=== PATIENT | male | born 1965 | race Caucasian/White ===

== ENCOUNTER 2017-06-15 09:36 | Inpatient (IN) | payer OTHER ==
[2017-06-15] MEDS ORDERED: PHENERGAN INJ 25 MG IM PRN (10:33)
[2017-06-15] MEDS ORDERED: NS 1000 ML 1,000 ML IV ONE ×2 (10:33)
[2017-06-15 11:15] LABS: BASOPHILS % (AUTO) 0.2 % (0.2-1.0); EOSINOPHILS % (AUTO) 0.1 % (0.9-2.9); HEMATOCRIT 43.3 % (42.0-54.0); HEMOGLOBIN 15.1 g/dL (13.5-18.0); LYMPHOCYTES # (AUTO) 1.7 X10^3/uL (1.3-2.9); MEAN CORPUSCULAR HEMOGLOBIN 29.3 pg (27.0-34.0); MEAN CORPUSCULAR HGB CONC 34.9 g/dL (33.0-35.0); MEAN PLATELET VOLUME 8.2 fL (7.4-11.0); MONOCYTES # (AUTO) 1.3 x10^3/uL (0.3-0.8); MONOCYTES % (AUTO) 7.3 % (0.0-13.0); NEUTROPHILS # (AUTO) 14.1 x10^3/uL (2.2-4.8); NEUTROPHILS % (AUTO) 82.4 % (42.0-75.0); PLATELET COUNT 303 X10^3/uL (150.0-450.0); RED BLOOD COUNT 5.16 X10^6/uL (4.7-6.0); RED CELL DISTRIBUTION WIDTH 13.8 % (11.6-16.5); WHITE BLOOD COUNT 17.2 X10^3/uL (3.6-10.0)
[2017-06-15 11:25] LABS: ALBUMIN 3.1 g/dL (3.4-5.0); CALCIUM 9.6 mg/dL (8.5-10.1); CARBON DIOXIDE 35.3 mmol/L (21-32); COR CA(FOR HYPOALB) 10.3 mg/dL (8.5-10.1); CREATININE 4.09 mg/dL (0.70-1.30); TOTAL PROTEIN 7.9 g/dL (6.4-8.2)
[2017-06-15 11:27] VITALS: BMI 40.6
[2017-06-15] MEDS: PEPCID 20 MG IV PREMIX* 20 MG/50 ML BAG IV SCH ×2 (11:55→21:59)
[2017-06-15] MEDS: PROTONIX INJ 40 MG VIAL IVP SCH ×2 (11:56→21:59)
[2017-06-15] MEDS ORDERED: NS 1000 ML 1,000 ML IV NR (12:30)
[2017-06-15] MEDS: ZOFRAN INJ 4 MG VIAL IVP PRN ×2 (12:50→18:45)
[2017-06-15] MEDS: NS 1000 ML 1,000 ML IV SCH ×2 (14:58→21:53)
[2017-06-15 18:08] LABS: BILIRUBIN,URINE 1+ (NEGATIVE); BLOOD/HEMOGLOBIN,URINE 1+ (NEGATIVE); GLUCOSE, URINE NEGATIVE (NEGATIVE); KETONES,URINE NEGATIVE (NEGATIVE); LEUKOCYTE ESTERASE ,URINE 1+ (NEGATIVE); NITRITES,URINE NEGATIVE (NEGATIVE); PROTEIN,URINE 3+ (NEGATIVE); UROBILINOGEN,URINE NORMAL (NORMAL)
[2017-06-15 18:25] LABS: AMORPHOUS SEDIMENT,UR 1+ /HPF (NEGATIVE); APPEARANCE,URINE SLIGHTLY HAZY (CLEAR); BACTERIA,URINE 1+ /HPF (NEGATIVE); COLOR,URINE STRAW (YELLOW); HYALINE CASTS, URINE FEW /LPF (NEGATIVE); MUCUS,URINE MODERATE /HPF (NEGATIVE); SQUAMOUS EPITHELIAL CELL,UR FEW /HPF (NEGATIVE)
[2017-06-15] MEDS: PHENERGAN INJ 25 MG IV PRN (22:06)
[2017-06-16] MEDS: NS 1000 ML 1,000 ML IV SCH ×3 (01:36→08:51)
[2017-06-16 06:22] LABS: BASOPHILS % (AUTO) 0.2 % (0.2-1.0); EOSINOPHILS # (AUTO) 0.1 x10^3/uL (0.0-0.2); EOSINOPHILS % (AUTO) 0.8 % (0.9-2.9); HEMATOCRIT 36.8 % (42.0-54.0); HEMOGLOBIN 13.2 g/dL (13.5-18.0); LYMPHOCYTES # (AUTO) 1.4 X10^3/uL (1.3-2.9); LYMPHOCYTES % (AUTO) 16.9 % (21.0-51.0); MEAN CORPUSCULAR HGB CONC 35.9 g/dL (33.0-35.0); MEAN CORPUSCULAR VOLUME 83.7 fL (80.0-100.0); MEAN PLATELET VOLUME 8.2 fL (7.4-11.0); MONOCYTES # (AUTO) 1.2 x10^3/uL (0.3-0.8); MONOCYTES % (AUTO) 14.4 % (0.0-13.0); NEUTROPHILS # (AUTO) 5.5 x10^3/uL (2.2-4.8); NEUTROPHILS % (AUTO) 67.7 % (42.0-75.0); PLATELET COUNT 241 X10^3/uL (150.0-450.0); RED CELL DISTRIBUTION WIDTH 13.8 % (11.6-16.5); WHITE BLOOD COUNT 8.2 X10^3/uL (3.6-10.0)
[2017-06-16 06:51] LABS: ALBUMIN 2.6 g/dL (3.4-5.0); CALCIUM 8.6 mg/dL (8.5-10.1); CARBON DIOXIDE 31.3 mmol/L (21-32); COR CA(FOR HYPOALB) 9.7 mg/dL (8.5-10.1); CREATININE 5.17 mg/dL (0.70-1.30); TOTAL PROTEIN 6.9 g/dL (6.4-8.2)
[2017-06-16] MEDS: PROTONIX INJ 40 MG VIAL IVP SCH ×2 (09:42→22:23)
[2017-06-16] MEDS: PHENERGAN INJ 25 MG IV PRN ×2 (09:42→18:58)
[2017-06-16] MEDS: PEPCID 20 MG IV PREMIX* 20 MG/50 ML BAG IV SCH (09:42)
[2017-06-16] MEDS ORDERED: NS 1000 ML 1,000 ML IV ONE ×2 (09:54→09:55)
--- NOTE | 2017-06-16 10:27 | DR.UPDATE ---
H&P Update History and Physical Update: WAS SEEN IN THE OFFICE ON 11/12/2017. HE WAS ADMITTED FOR DEHYDRATION , NAUSEA & VOMITING, S/P ILEOSTOMY 2 WEEKS AGO. A H&P WAS COMPLETED PRIOR TO ADMISSION. PATIENT HAS BEEN SEEN AND EXAMINED WITH NO CHANGES NOTED TO H&P. Changes noted: NO Yes with the following:
[2017-06-16] MEDS: ALBUMIN HUMAN 25%- 100ML 100 ML IV SCH (10:34)
[2017-06-16] MEDS ORDERED: PATIENT'S HOME MEDICATION (Fluticasone/Vilanterol [Breo Ellipta 200-25 Mcg Inh] 1 PUFF) INH SCH (11:30)
[2017-06-16] MEDS: NS 1000 ML 1,000 ML with SODIUM BICARBONATE 8.4% INJ ADULT 50 ML IV SCH ×6 (12:45→23:13)
[2017-06-16] MEDS: SINGULAIR TAB 10 MG PO SCH (12:45)
[2017-06-16] MEDS: DUONEB 0.5 MG/3 MG NEB SCH ×3 (13:49→20:25)
[2017-06-16] MEDS: MORPHINE SULFATE INJ 4 MG IVP PRN (18:22)
[2017-06-16] MEDS: PULMICORT NEB TX 0.5 MG NEB SCH (20:25)
--- NOTE | 2017-06-16 22:08 | CT ---
HISTORY: Severe left upper quadrant pain, vomiting Study: CT abdomen and pelvis without contrast Comparison: 03/23/2015 Technique: Multiple axial images of the abdomen and pelvis were obtained without IV contrast. Dose reduction t echniques including Automated Exposure Control (AEC) and adjustment of mA and kV were utilized. Findings: Please note evaluation is limited without use of IV contrast. There is segmental atelectasis in the right lung base. The liver, spleen, pancreas, kidneys, and adr enal glands are unremarkable in their unenhanced CT appearance. The gallbladder is normal. Enteric tu be terminates in the mid body of the stomach. No free intraperitoneal air. Diffuse dilation of small bowel loops is seen throughout the abdomen salvatore suring up to 4.5 cm with scattered air-fluid levels and areas of bowel wall thickening. Bowel is dila marvel to the level of the mid right abdominal ileostomy. There is a small parastomal hernia at this sit e cannot exclude an obstruction at the level of the ileostomy. The patient is post total colectomy. T here are few mildly prominent presacral lymph nodes for example on axial image 75 measuring 1.2 cm. T here is also a nonspecific 1.5 cm nodular density in the omental fat anterior to the liver on axial i mage 20. The soft tissues and osseous structures are unremarkable. Limited evaluation of vascular structures d ue to lack of contrast. No pathologically enlarged lymph nodes are identified. The urinary bladder is unremarkable. IMPRESSION: 1. Findings concerning for small bowel obstruction with transition point at the ileostomy. Correlatio n with ostomy output is recommended as well as surgical evaluation if clinically warranted. There is a small parastomal hernia noted. 2. Post total colectomy with mildly prominent presacral lymph nodes as described as well as an additi onal nodule in the omentum anterior to the liver. These findings are indeterminate and correlation wi th any previous PET scan would be beneficial if the patient has a history of colonic malignancy. Reported By:
[2017-06-17] MEDS: MORPHINE SULFATE INJ 4 MG IVP PRN ×2 (00:21→20:46)
[2017-06-17] MEDS ORDERED: CHLORASEPTIC SPRAY MT PRN (04:45)
[2017-06-17] MEDS: NS 1000 ML 1,000 ML with SODIUM BICARBONATE 8.4% INJ ADULT 50 ML IV SCH ×2 (05:00)
[2017-06-17 06:16] LABS: BASOPHILS % (AUTO) 0.1 % (0.2-1.0); EOSINOPHILS % (AUTO) 0.2 % (0.9-2.9); HEMATOCRIT 32.4 % (42.0-54.0); HEMOGLOBIN 11.5 g/dL (13.5-18.0); LYMPHOCYTES # (AUTO) 0.7 X10^3/uL (1.3-2.9); LYMPHOCYTES % (AUTO) 12.2 % (21.0-51.0); MEAN CORPUSCULAR HEMOGLOBIN 29.9 pg (27.0-34.0); MEAN CORPUSCULAR HGB CONC 35.5 g/dL (33.0-35.0); MEAN CORPUSCULAR VOLUME 84.2 fL (80.0-100.0); MEAN PLATELET VOLUME 7.8 fL (7.4-11.0); MONOCYTES # (AUTO) 0.7 x10^3/uL (0.3-0.8); MONOCYTES % (AUTO) 12.8 % (0.0-13.0); NEUTROPHILS % (AUTO) 74.7 % (42.0-75.0); PLATELET COUNT 213 X10^3/uL (150.0-450.0); RED BLOOD COUNT 3.85 X10^6/uL (4.7-6.0); RED CELL DISTRIBUTION WIDTH 13.8 % (11.6-16.5); WHITE BLOOD COUNT 5.4 X10^3/uL (3.6-10.0)
[2017-06-17 06:29] LABS: ALBUMIN 2.2 g/dL (3.4-5.0); CARBON DIOXIDE 32.5 mmol/L (21-32); COR CA(FOR HYPOALB) 9.4 mg/dL (8.5-10.1); CREATININE 1.82 mg/dL (0.70-1.30)
--- NOTE | 2017-06-17 07:19 | RAD ---
HISTORY: Small bowel obstruction Study: KUB Comparison: CT abdomen pelvis 06/16/2017 Findings: There is nasogastric tube with its tip within the stomach. There are several dilated loops of small b owel in the mid abdomen . There is an ileostomy in the right lower quadrant. Findings are suggestive of small-bowel obstruction. No abnormal masses or abnormal calcifications are identified. IMPRESSION: Findings suggestive of small-bowel obstruction Reported By:
[2017-06-17] MEDS: ALBUMIN HUMAN 25%- 100ML 100 ML IV SCH (09:01)
[2017-06-17] MEDS: PROTONIX INJ 40 MG VIAL IVP SCH ×2 (09:04→20:46)
[2017-06-17] MEDS: DUONEB 0.5 MG/3 MG NEB SCH ×4 (09:12→21:11)
[2017-06-17] MEDS: PULMICORT NEB TX 0.5 MG NEB SCH ×2 (09:12→21:11)
[2017-06-17] MEDS: PEPCID 20 MG IV PREMIX* 20 MG/50 ML BAG IV SCH (09:14)
[2017-06-17] MEDS: D5 1/2 NS 1000 ML 1,000 ML IV SCH ×2 (11:36→18:15)
[2017-06-17] MEDS: LEVAQUIN PREMIX IV 500 MG 500 MG/100 ML BAG IV SCH (11:37)
[2017-06-17] MEDS: SINGULAIR TAB 10 MG PO SCH (11:37)
[2017-06-17] MEDS: LOVENOX INJ 40 MG SYR SC SCH (11:37)
--- NOTE | 2017-06-17 16:25 | DR.PROGNOT ---
Hospital Progress Notes - Progress Note for Day of: Progress Note Date: 06/17/17 - Chief Complaint Chief Complaint: abdominal pain . distention , vomiting over the past few days . had recent subtotal colectom with ileostomy for severe Ulcerative colitis . NGT is draining fecaloid material .. feeling better this am with less pain . ileostomy is functioning but only small amount - History of Present Illness History of Present Illness: no changes in history. - Past Medical Family Social History Past Med/Fam/Surg Hx: No changes since H&P Allergies: Allergies No Known Drug Allergies Allergy (Verified 06/15/17 10:33) - Review Of Systems ROS: No change since H&P (HTN , GERD ,recurrent ulcerative colitis required resction .) - Vital Signs Vital Signs: Temperature 98.9 F Pulse Rate [Right Brachial] 98 Pulse Rate 76 Respiratory Rate 20 Blood Pressure [Left Arm] 100/53 Blood Pressure [Right Arm] 131/70 Blood Pressure 137/71 O2 Sat by Pulse Oximetry 94 - Physical Exam Oriented: Normal Eyes: Normal Ear: Normal Nose: Normal Throat: Normal Respiratory: Normal GI: Tenderness: Diffuse, Moderate (full abdomen . BS hypoactive , small amount of stool in the ileostomy bag . no wound infection ) Psychiatric: Normal - Laboratory and Diagnostics Result Diagrams: 06/17/17 05:25 06/17/17 05:25 Labs: Laboratory WBC 5.4 X10^3/uL (3.6-10.0) 06/17/17 05:25 RBC 3.85 X10^6/uL (4.7-6.0) L 06/17/17 05:25 Hgb 11.5 g/dL (13.5-18.0) L 06/17/17 05:25 Hct 32.4 % (42.0-54.0) L 06/17/17 05:25 MCV 84.2 fL (80.0-100.0) 06/17/17 05:25 MCH 29.9 pg (27.0-34.0) 06/17/17 05:25 MCHC 35.5 g/dL (33.0-35.0) H 06/17/17 05:25 RDW 13.8 % (11.6-16.5) 06/17/17 05:25 Plt Count 213 X10^3/uL (150.0-450.0) 06/17/17 05:25 MPV 7.8 fL (7.4-11.0) 06/17/17 05:25 Neut % 74.7 % (42.0-75.0) 06/17/17 05:25 Lymph % 12.2 % (21.0-51.0) L 06/17/17 05:25 [place] % 12.8 % (0.0-13.0) 06/17/17 05:25 Eos % 0.2 % (0.9-2.9) L 06/17/17 05:25 Baso % 0.1 % (0.2-1.0) L 06/17/17 05:25 Neut # 4.0 x10^3/uL (2.2-4.8) 06/17/17 05:25 Lymph # 0.7 X10^3/uL (1.3-2.9) L 06/17/17 05:25 [place] # 0.7 x10^3/uL (0.3-0.8) 06/17/17 05:25 Eos # 0.0 x10^3/uL (0.0-0.2) 06/17/17 05:25 Baso # 0.0 X10^3/uL (0.0-0.1) 06/17/17 05:25 Absolute Nucleated RBC 0.1 /100WBC 06/17/17 05:25 Sodium 136 mmol/L (136-145) 06/17/17 05:25 Corrected Sodium 136 mmol/L (136-145) 06/17/17 05:25 Potassium 3.6 mmol/L (3.5-5.1) 06/17/17 05:25 Chloride 97 mmol/L (98-107) L 06/17/17 05:25 Carbon Dioxide 32.5 mmol/L (21-32) H 06/17/17 05:25 BUN 38 mg/dL (7-18) H 06/17/17 05:25 Creatinine 1.82 mg/dL (0.70-1.30) H 06/17/17 05:25 Est GFR (MDRD) Af Amer 50 (>60) L 06/17/17 05:25 Est GFR (MDRD) Non-Af 42 (>60) L 06/17/17 05:25 Glucose 119 mg/dL (65-99) H 06/17/17 05:25 Calcium 8.0 mg/dL (8.5-10.1) L 06/17/17 05:25 Corrected Calcium 9.4 mg/dL (8.5-10.1) 06/17/17 05:25 Total Bilirubin 1.40 mg/dL (0.2-1.0) H 06/17/17 05:25 AST 12 Units/L (15-37) L 06/17/17 05:25 ALT 18 Units/L (12-78) 06/17/17 05:25 Alkaline Phosphatase 41 Units/L (46-116) L 06/17/17 05:25 Total Protein 6.0 g/dL (6.4-8.2) L 06/17/17 05:25 Albumin 2.2 g/dL (3.4-5.0) L 06/17/17 05:25 Globulin 3.8 g/dL (2.5-4.5) 06/17/17 05:25 Albumin/Globulin Ratio 0.6 Ratio (1.1-2.1) L 06/17/17 05:25 Specimen Type Clean catch urine 06/15/17 17:55 Urine Color Straw (YELLOW) 06/15/17 17:55 Urine Appearance Slightly hazy (CLEAR) 06/15/17 17:55 Urine pH 5.0 (5.0 - 8.0) 06/15/17 17:55 Ur Specific [place] 1.025 (1.000-1.030) 06/15/17 17:55 Urine Protein 3+ (NEGATIVE) 06/15/17 17:55 Urine Glucose (UA) Negative (NEGATIVE) 06/15/17 17:55 Urine Ketones Negative (NEGATIVE) 06/15/17 17:55 Urine Occult Blood 1+ (NEGATIVE) 06/15/17 17:55 Urine Nitrite Negative (NEGATIVE) 06/15/17 17:55 Urine Bilirubin 1+ (NEGATIVE) 06/15/17 17:55 Urine Urobilinogen Normal (NORMAL) 06/15/17 17:55 Ur Leukocyte Esterase 1+ (NEGATIVE) 06/15/17 17:55 Urine RBC 2-3 /HPF (NONE SEEN) 06/15/17 17:55 Urine WBC 0-2 /HPF (NONE SEEN) 06/15/17 17:55 Ur Squamous Epith Cells Few /HPF (NEGATIVE) 06/15/17 17:55 Amorphous Sediment 1+ /HPF (NEGATIVE) 06/15/17 17:55 Urine Bacteria 1+ /HPF (NEGATIVE) 06/15/17 17:55 Hyaline Casts Few /LPF (NEGATIVE) 06/15/17 17:55 Urine Mucus Moderate /HPF (NEGATIVE) 06/15/17 17:55 Ur Culture Indicated? No/not indicated 06/15/17 17:55 - Assessment and Plan 1: post operative partial SBO ,most propably ileus type . S/P subtotal colectomy for UC. severe vomiting and dehydration . obesity . red keep keep NGT.IVF and hydration , DVT prophylaxis , IV ATB and protonix ,nutritional support and repeat abdominal xrays
[2017-06-17] MEDS: PHENERGAN INJ 25 MG IV PRN (20:47)
[2017-06-18] MEDS: D5 1/2 NS 1000 ML 1,000 ML IV SCH ×3 (01:11→17:49)
[2017-06-18 06:09] LABS: BASOPHILS % (AUTO) 0.4 % (0.2-1.0); EOSINOPHILS # (AUTO) 0.1 x10^3/uL (0.0-0.2); EOSINOPHILS % (AUTO) 1.6 % (0.9-2.9); HEMATOCRIT 31.5 % (42.0-54.0); HEMOGLOBIN 11.1 g/dL (13.5-18.0); LYMPHOCYTES # (AUTO) 1.1 X10^3/uL (1.3-2.9); LYMPHOCYTES % (AUTO) 14.3 % (21.0-51.0); MEAN CORPUSCULAR HEMOGLOBIN 29.9 pg (27.0-34.0); MEAN CORPUSCULAR HGB CONC 35.2 g/dL (33.0-35.0); MEAN CORPUSCULAR VOLUME 84.9 fL (80.0-100.0); MEAN PLATELET VOLUME 8.1 fL (7.4-11.0); MONOCYTES # (AUTO) 0.9 x10^3/uL (0.3-0.8); MONOCYTES % (AUTO) 10.9 % (0.0-13.0); NEUTROPHILS # (AUTO) 5.7 x10^3/uL (2.2-4.8); NEUTROPHILS % (AUTO) 72.8 % (42.0-75.0); PLATELET COUNT 240 X10^3/uL (150.0-450.0); RED BLOOD COUNT 3.71 X10^6/uL (4.7-6.0); RED CELL DISTRIBUTION WIDTH 13.6 % (11.6-16.5); WHITE BLOOD COUNT 7.9 X10^3/uL (3.6-10.0)
[2017-06-18 06:40] LABS: ALANINE AMINOTRANSFERASE 17 Units/L (12-78); ALBUMIN 2.4 g/dL (3.4-5.0); ALKALINE PHOSPHATASE 50 Units/L (46-116); ASPARTATE AMINO TRANSFERASE 15 Units/L (15-37); BLOOD UREA NITROGEN 21 mg/dL (7-18); CALCIUM 8.3 mg/dL (8.5-10.1); CARBON DIOXIDE 30.2 mmol/L (21-32); CHLORIDE 97 mmol/L (98-107); COR CA(FOR HYPOALB) 9.6 mg/dL (8.5-10.1); COR NA(FOR HYPERGLY) 137 mmol/L (136-145); CREATININE 0.99 mg/dL (0.70-1.30); SODIUM 136 mmol/L (136-145); TOTAL PROTEIN 6.5 g/dL (6.4-8.2); eGFR BLACK RACES > 60 (>60); eGFR NON BLACK RACES > 60 (>60)
--- NOTE | 2017-06-18 07:28 | RAD ---
HISTORY: Small bowel obstruction Study: Flat and upright abdomen, PA chest Comparison: 06/17/2017, CT abdomen pelvis 06/16/2017 Findings: Once again noted are multiple dilated loops of small bowel in the mid abdomen very little gas is seen in the distal small bowel. The findings are consistent with ongoing small bowel obstruction. There i s nasogastric tube within the stomach. No pneumoperitoneum is identified. Examination of the chest de monstrated the heart to be within normal limits in size. There is abnormal density projected over the right hilum this may represent infiltrate and atelectasis. Chest CT with contrast is recommended for further evaluation. The left lung is clear. IMPRESSION: Findings consistent with small bowel obstruction Abnormal right-sided perihilar density possibly infiltrate and atelectasis in the right lower lobe ho wever chest CT with contrast is recommended for further evaluation. Reported By:
[2017-06-18] MEDS ORDERED: POTASSIUM CHL 60 MEQ/NS 0.45% 500 ML IV PRN (08:06)
[2017-06-18] MEDS ORDERED: MAGNESIUM SULFATE 1 GM/100 mL PREMIX 1 GM/100 ML BAG IV PRN (08:06)
[2017-06-18] MEDS ORDERED: POTASSIUM CHL 40 MEQ/NS 0.45% 500 ML IV PRN (08:06)
[2017-06-18] MEDS ORDERED: K-LYTE EFFERVESCENT PO PRN (08:06)
[2017-06-18] MEDS ORDERED: POTASSIUM CHLORIDE LIQ 20 MEQ UDC PO PRN (08:06)
[2017-06-18] MEDS ORDERED: MAG-OX TAB PO PRN (08:06)
[2017-06-18] MEDS: LEVAQUIN PREMIX IV 500 MG 500 MG/100 ML BAG IV SCH (08:31)
[2017-06-18] MEDS: ALBUMIN HUMAN 25%- 100ML 100 ML IV SCH (08:31)
[2017-06-18] MEDS: PEPCID 20 MG IV PREMIX* 20 MG/50 ML BAG IV SCH (08:33)
[2017-06-18] MEDS: PROTONIX INJ 40 MG VIAL IVP SCH (08:34)
[2017-06-18] MEDS: LOVENOX INJ 40 MG SYR SC SCH (08:34)
[2017-06-18] MEDS: DUONEB 0.5 MG/3 MG NEB SCH ×4 (09:07→21:32)
[2017-06-18] MEDS: PULMICORT NEB TX 0.5 MG NEB SCH ×2 (09:08→21:32)
[2017-06-18] MEDS: SINGULAIR TAB 10 MG PO SCH (11:16)
--- NOTE | 2017-06-18 11:21 | CT ---
CT chest with contrast Indication: Abnormal chest radiograph, possible pneumonia Technique: Helical CT images of the chest were obtained with IV contrast. Reformatted images in the c oronal and sagittal planes were also generated for review. Comparison: Acute abdominal series from same day Findings: The heart is normal in size without pericardial effusion. Mild coronary atherosclerotic dis ease is noted. The thoracic aorta is normal in contour and caliber. The central airways are patent. S hotty lower mediastinal and right hilar lymph nodes are present, none pathologically enlarged. There is no left hilar lymphadenopathy. Dense airspace infiltrates are present within the right upper and lower lobes with associated air bro nchograms. Apart from subsegmental atelectasis of the left lower lobe, the left lung is clear. No sig nificant pleural effusion or pneumothorax is identified. Limited images of the upper abdomen demonstrate dilated loops of small bowel within the left upper qu adrant, compatible with known small bowel obstruction. An NG tube terminates within the gastric antru m. No aggressive osseous lesions are identified. Impression: Dense airspace disease within the right upper and lower lobes, most compatible with multifocal pneumo qi. Recommend radiographic follow-up to complete resolution to exclude underlying mass. Persistent small bowel obstruction. Reported By:
--- NOTE | 2017-06-18 12:03 | DR.PROGNOT ---
Hospital Progress Notes - Progress Note for Day of: Progress Note Date: 06/18/17 - Chief Complaint Chief Complaint: less abdominal pain , no nausea and NGT drainage is less.. ileostomy in functioning this mornong ,though the xray is still showing dilated small bowel loops .. - History of Present Illness History of Present Illness: no changes in history. - Past Medical Family Social History Past Med/Fam/Surg Hx: No changes since H&P Allergies: Allergies No Known Drug Allergies Allergy (Verified 06/15/17 10:33) - Review Of Systems ROS: No change since H&P (HTN , GERD ,recurrent ulcerative colitis required resction .) - Vital Signs Vital Signs: Temperature 97.5 F Pulse Rate [Right Brachial] 86 Pulse Rate 78 Respiratory Rate 20 Blood Pressure [Left Arm] 144/77 Blood Pressure [Right Arm] 136/79 Blood Pressure 137/71 O2 Sat by Pulse Oximetry 95 - Physical Exam Oriented: Normal Eyes: Normal Ear: Normal Nose: Normal Throat: Normal Respiratory: Normal GI: Tenderness: Diffuse, Moderate (full abdomen . BS + , moderate amount of stool in the ileostomy bag . no wound infection ) Psychiatric: Normal Speech Pattern: Clear, Appropriate - Laboratory and Diagnostics Result Diagrams: 06/18/17 05:00 06/18/17 05:00 Labs: Laboratory WBC 7.9 X10^3/uL (3.6-10.0) 06/18/17 05:00 RBC 3.71 X10^6/uL (4.7-6.0) L 06/18/17 05:00 Hgb 11.1 g/dL (13.5-18.0) L 06/18/17 05:00 Hct 31.5 % (42.0-54.0) L 06/18/17 05:00 MCV 84.9 fL (80.0-100.0) 06/18/17 05:00 MCH 29.9 pg (27.0-34.0) 06/18/17 05:00 MCHC 35.2 g/dL (33.0-35.0) H 06/18/17 05:00 RDW 13.6 % (11.6-16.5) 06/18/17 05:00 Plt Count 240 X10^3/uL (150.0-450.0) 06/18/17 05:00 MPV 8.1 fL (7.4-11.0) 06/18/17 05:00 Neut % 72.8 % (42.0-75.0) 06/18/17 05:00 Lymph % 14.3 % (21.0-51.0) L 06/18/17 05:00 [place] % 10.9 % (0.0-13.0) 06/18/17 05:00 Eos % 1.6 % (0.9-2.9) 06/18/17 05:00 Baso % 0.4 % (0.2-1.0) 06/18/17 05:00 Neut # 5.7 x10^3/uL (2.2-4.8) H 06/18/17 05:00 Lymph # 1.1 X10^3/uL (1.3-2.9) L 06/18/17 05:00 [place] # 0.9 x10^3/uL (0.3-0.8) H 06/18/17 05:00 Eos # 0.1 x10^3/uL (0.0-0.2) 06/18/17 05:00 Baso # 0.0 X10^3/uL (0.0-0.1) 06/18/17 05:00 Absolute Nucleated RBC 0.0 /100WBC 06/18/17 05:00 Sodium 136 mmol/L (136-145) 06/18/17 05:00 Corrected Sodium 137 mmol/L (136-145) 06/18/17 05:00 Potassium 3.1 mmol/L (3.5-5.1) L 06/18/17 05:00 Chloride 97 mmol/L (98-107) L 06/18/17 05:00 Carbon Dioxide 30.2 mmol/L (21-32) 06/18/17 05:00 BUN 21 mg/dL (7-18) H 06/18/17 05:00 Creatinine 0.99 mg/dL (0.70-1.30) 06/18/17 05:00 Est GFR (MDRD) Af Amer > 60 (>60) 06/18/17 05:00 Est GFR (MDRD) Non-Af > 60 (>60) 06/18/17 05:00 Glucose 133 mg/dL (65-99) H 06/18/17 05:00 Calcium 8.3 mg/dL (8.5-10.1) L 06/18/17 05:00 Corrected Calcium 9.6 mg/dL (8.5-10.1) 06/18/17 05:00 Magnesium 1.9 mg/dL (1.7-2.9) 06/18/17 05:00 Total Bilirubin 1.60 mg/dL (0.2-1.0) H 06/18/17 05:00 AST 15 Units/L (15-37) 06/18/17 05:00 ALT 17 Units/L (12-78) 06/18/17 05:00 Alkaline Phosphatase 50 Units/L (46-116) 06/18/17 05:00 Total Protein 6.5 g/dL (6.4-8.2) 06/18/17 05:00 Albumin 2.4 g/dL (3.4-5.0) L 06/18/17 05:00 Globulin 4.1 g/dL (2.5-4.5) 06/18/17 05:00 Albumin/Globulin Ratio 0.6 Ratio (1.1-2.1) L 06/18/17 05:00 Specimen Type Clean catch urine 06/15/17 17:55 Urine Color Straw (YELLOW) 06/15/17 17:55 Urine Appearance Slightly hazy (CLEAR) 06/15/17 17:55 Urine pH 5.0 (5.0 - 8.0) 06/15/17 17:55 Ur Specific [place] 1.025 (1.000-1.030) 06/15/17 17:55 Urine Protein 3+ (NEGATIVE) 06/15/17 17:55 Urine Glucose (UA) Negative (NEGATIVE) 06/15/17 17:55 Urine Ketones Negative (NEGATIVE) 06/15/17 17:55 Urine Occult Blood 1+ (NEGATIVE) 06/15/17 17:55 Urine Nitrite Negative (NEGATIVE) 06/15/17 17:55 Urine Bilirubin 1+ (NEGATIVE) 06/15/17 17:55 Urine Urobilinogen Normal (NORMAL) 06/15/17 17:55 Ur Leukocyte Esterase 1+ (NEGATIVE) 06/15/17 17:55 Urine RBC 2-3 /HPF (NONE SEEN) 06/15/17 17:55 Urine WBC 0-2 /HPF (NONE SEEN) 06/15/17 17:55 Ur Squamous Epith Cells Few /HPF (NEGATIVE) 06/15/17 17:55 Amorphous Sediment 1+ /HPF (NEGATIVE) 06/15/17 17:55 Urine Bacteria 1+ /HPF (NEGATIVE) 06/15/17 17:55 Hyaline Casts Few /LPF (NEGATIVE) 06/15/17 17:55 Urine Mucus Moderate /HPF (NEGATIVE) 06/15/17 17:55 Ur Culture Indicated? No/not indicated 06/15/17 17:55 Radiology Reviewed: Yes - Assessment and Plan 1: post operative partial SBO ,most propably ileus type . S/P subtotal colectomy for UC. severe vomiting and dehydration . obesity . red keep keep NGT.IVF and hydration , DVT prophylaxis , IV ATB and protonix ,nutritional support and repeat abdominal xrays
--- NOTE | 2017-06-18 14:10 | PCM.PROG ---
Progress Note - Progress Note for Day of Date: 06/16/17 - Subjective Subjective: WAS ADMITTED FOR DEHYDRATION AND NAUSEA/VOMITING, S/P ILEOSTOMY ON 06/13/2017. PATIENT REPORTS THAT HE UNDERWENT A COLECTOMY WITH ILEOSTOMY FOR SEVERE ULCERATIVE COLITIS. TODAY, HE IS ALERT AND ORIENTED, LYING IN BED ON MORNING ROUNDS. PATIENTS SPOUSE IS AT BEDSIDE. HE CONTINUES WITH COMPLAINTS OF NAUSEA, VOMITING, AND DIFFUSE ABDOMINAL PAIN. ON EXAMINATION, HEART IS REGULAR IN RATE AND RHYTHM. BILATERAL LUNGS ARE NOTED WITH DIMINISHED LUNG SOUNDS THROUGHOUT. ABDOMEN IS ROUND, SOFT, AND NOTED WITH MODERATE, DIFFUSE TENDERNESS ON PALPATION. STOMA IS NOTED TO THE RIGHT LOWER ABDOMEN. STOMA IS RED AND WITH NO SIGNS OR SX INFECTION NOTED. NORMAL BOWEL SOUNDS ARE NOTED IN ALL QUADRANTS. THERE IS NORMAL RANGE OF MOTION NOTED TO ALL EXTREMITIES. HIS VITALS THIS MORNING ARE 98.4-90-20-92%-95/54. LABS WERE OBTAINED. ABNORMAL LAB VALUES INCLUDE THE FOLLOWING: RBC 4.40, HGB 13.2, HCT 36.8, SODIUM 130, CHLORIDE 89, BUN 49, CREATININE 5.17, GFR 12, GLUCOSE 118, AST 11, ALK PHOS 45, ALBUMIN 2.6. TODAY, WE PLAN TO BOLUS PATIENT TWO LITERS OF NORMAL SALINE. WE WILL THEN INCREASE MAINTENANCE FLUIDS TO 200ML/HR WITH ONE AMP OF BICARB ADDED TO EACH LITER OF IV FLUIDS. WE WILL ALSO START ALBUMIN 25% IV DAILY FOR DECREASED ALBUMIN LEVELS. OTHERWISE, WE WILL CONTINUE WITH CURRENT PLAN OF CARE. WE PLAN TO FOLLOW UP WITH AM LABS AND CONTINUE TO MONITOR PATIENT. - Past Medical Family Social History Past Med/Fam/Surg Hx: No changes since H&P Allergies: Allergies No Known Drug Allergies Allergy (Verified 06/15/17 10:33) - Review of Systems ROS: No change since H&P (HTN , GERD ,recurrent ulcerative colitis required resction .) - Vital Signs and I&O's Vital Signs: Temperature 98.2 F Pulse Rate [Right Brachial] 92 Pulse Rate 71 Respiratory Rate 20 Blood Pressure [Left Arm] 144/77 Blood Pressure [Right Arm] 130/76 Blood Pressure 137/71 O2 Sat by Pulse Oximetry 95 Intake and Output: Intake & Output 06/16/17 06/17/17 06/18/17 06/19/17 11:59 11:59 11:59 11:59 Intake Total 4750 5920 1200 Output Total 1600 800 Balance 4750 4320 400 - Physical Exam Oriented: Normal Eyes: Normal Ear: Normal Nose: Normal Throat: Normal Respiratory: Generalized, Diminished Cardiovascular: Normal. negative: S3, S4, Murmur, Edema : Normal Auscultation: Bowel Sounds: Normal Palpation: Normal Tenderness: Diffuse, Moderate (full abdomen . BS + , moderate amount of stool in the ileostomy bag . no wound infection ) Skin: Normal Musculoskeletal: Normal Psychiatric: Normal Speech Pattern: Clear, Appropriate - Laboratory and Diagnostics Result Diagrams: 06/18/17 05:00 06/18/17 05:00 Labs: Laboratory WBC 7.9 X10^3/uL (3.6-10.0) 06/18/17 05:00 RBC 3.71 X10^6/uL (4.7-6.0) L 06/18/17 05:00 Hgb 11.1 g/dL (13.5-18.0) L 06/18/17 05:00 Hct 31.5 % (42.0-54.0) L 06/18/17 05:00 MCV 84.9 fL (80.0-100.0) 06/18/17 05:00 MCH 29.9 pg (27.0-34.0) 06/18/17 05:00 MCHC 35.2 g/dL (33.0-35.0) H 06/18/17 05:00 RDW 13.6 % (11.6-16.5) 06/18/17 05:00 Plt Count 240 X10^3/uL (150.0-450.0) 06/18/17 05:00 MPV 8.1 fL (7.4-11.0) 06/18/17 05:00 Neut % 72.8 % (42.0-75.0) 06/18/17 05:00 Lymph % 14.3 % (21.0-51.0) L 06/18/17 05:00 [place] % 10.9 % (0.0-13.0) 06/18/17 05:00 Eos % 1.6 % (0.9-2.9) 06/18/17 05:00 Baso % 0.4 % (0.2-1.0) 06/18/17 05:00 Neut # 5.7 x10^3/uL (2.2-4.8) H 06/18/17 05:00 Lymph # 1.1 X10^3/uL (1.3-2.9) L 06/18/17 05:00 [place] # 0.9 x10^3/uL (0.3-0.8) H 06/18/17 05:00 Eos # 0.1 x10^3/uL (0.0-0.2) 06/18/17 05:00 Baso # 0.0 X10^3/uL (0.0-0.1) 06/18/17 05:00 Absolute Nucleated RBC 0.0 /100WBC 06/18/17 05:00 Sodium 136 mmol/L (136-145) 06/18/17 05:00 Corrected Sodium 137 mmol/L (136-145) 06/18/17 05:00 Potassium 3.1 mmol/L (3.5-5.1) L 06/18/17 05:00 Chloride 97 mmol/L (98-107) L 06/18/17 05:00 Carbon Dioxide 30.2 mmol/L (21-32) 06/18/17 05:00 BUN 21 mg/dL (7-18) H 06/18/17 05:00 Creatinine 0.99 mg/dL (0.70-1.30) 06/18/17 05:00 Est GFR (MDRD) Af Amer > 60 (>60) 06/18/17 05:00 Est GFR (MDRD) Non-Af > 60 (>60) 06/18/17 05:00 Glucose 133 mg/dL (65-99) H 06/18/17 05:00 Calcium 8.3 mg/dL (8.5-10.1) L 06/18/17 05:00 Corrected Calcium 9.6 mg/dL (8.5-10.1) 06/18/17 05:00 Magnesium 1.9 mg/dL (1.7-2.9) 06/18/17 05:00 Total Bilirubin 1.60 mg/dL (0.2-1.0) H 06/18/17 05:00 AST 15 Units/L (15-37) 06/18/17 05:00 ALT 17 Units/L (12-78) 06/18/17 05:00 Alkaline Phosphatase 50 Units/L (46-116) 06/18/17 05:00 Total Protein 6.5 g/dL (6.4-8.2) 06/18/17 05:00 Albumin 2.4 g/dL (3.4-5.0) L 06/18/17 05:00 Globulin 4.1 g/dL (2.5-4.5) 06/18/17 05:00 Albumin/Globulin Ratio 0.6 Ratio (1.1-2.1) L 06/18/17 05:00 Specimen Type Clean catch urine 06/15/17 17:55 Urine Color Straw (YELLOW) 06/15/17 17:55 Urine Appearance Slightly hazy (CLEAR) 06/15/17 17:55 Urine pH 5.0 (5.0 - 8.0) 06/15/17 17:55 Ur Specific [place] 1.025 (1.000-1.030) 06/15/17 17:55 Urine Protein 3+ (NEGATIVE) 06/15/17 17:55 Urine Glucose (UA) Negative (NEGATIVE) 06/15/17 17:55 Urine Ketones Negative (NEGATIVE) 06/15/17 17:55 Urine Occult Blood 1+ (NEGATIVE) 06/15/17 17:55 Urine Nitrite Negative (NEGATIVE) 06/15/17 17:55 Urine Bilirubin 1+ (NEGATIVE) 06/15/17 17:55 Urine Urobilinogen Normal (NORMAL) 06/15/17 17:55 Ur Leukocyte Esterase 1+ (NEGATIVE) 06/15/17 17:55 Urine RBC 2-3 /HPF (NONE SEEN) 06/15/17 17:55 Urine WBC 0-2 /HPF (NONE SEEN) 06/15/17 17:55 Ur Squamous Epith Cells Few /HPF (NEGATIVE) 06/15/17 17:55 Amorphous Sediment 1+ /HPF (NEGATIVE) 06/15/17 17:55 Urine Bacteria 1+ /HPF (NEGATIVE) 06/15/17 17:55 Hyaline Casts Few /LPF (NEGATIVE) 06/15/17 17:55 Urine Mucus Moderate /HPF (NEGATIVE) 06/15/17 17:55 Ur Culture Indicated? No/not indicated 06/15/17 17:55 - Plan (1) Dehydration Status: Acute Plan: BOLUS 2 LITERS NORMAL SALINE, THEN NORMAL SALINE AT 200ML/HR WITH 1 AMP BICARB IN EACH LITER IVF, CONTINUE TO MONITOR (2) Nausea & vomiting Status: Acute Qualifiers: Vomiting type: unspecified Vomiting Intractability: intractable Qualified Code(s): R11.2 - Nausea with vomiting, unspecified Plan: CONTINUE PHENERGAN, CONTINUE ZOFRAN, CONTINUE TO MONITOR (3) Abdominal pain Status: Acute Qualifiers: Abdominal location: generalized Qualified Code(s): R10.84 - Generalized abdominal pain Plan: CONTINUE MORPHINE, CONTINUE TO MONITOR (4) Status post ileostomy Status: Acute Plan: CONTINUE TO MONITOR
--- NOTE | 2017-06-18 16:54 | RAD ---
HISTORY: Small bowel obstruction Study: Flat and upright views of the abdomen. Comparison: 06/18/2017 Findings: Evaluation of the abdomen demonstrates a redemonstration of dilated loops of small bowel with air-flu id levels the upper abdomen. No distal bowel gas. No free air. No pathological soft tissue mass or c alcification can be observed. The bony structures are grossly intact. IMPRESSION: 1. No change in dilated loops of small bowel with air-fluid levels consistent with small bowel obstr uction. Reported By:
[2017-06-18] MEDS: PHENERGAN INJ 25 MG IV PRN (17:49)
[2017-06-19] MEDS: MORPHINE SULFATE INJ 4 MG IVP PRN
[2017-06-19] MEDS: PHENERGAN INJ 25 MG IV PRN (00:01)
[2017-06-19] MEDS: PROTONIX INJ 40 MG VIAL IVP SCH ×3 (00:01→21:05)
[2017-06-19] MEDS: D5 1/2 NS 1000 ML 1,000 ML IV SCH ×4 (00:12→17:09)
[2017-06-19 06:17] LABS: BASOPHILS % (AUTO) 0.4 % (0.2-1.0); EOSINOPHILS # (AUTO) 0.2 x10^3/uL (0.0-0.2); EOSINOPHILS % (AUTO) 2.7 % (0.9-2.9); HEMATOCRIT 31.5 % (42.0-54.0); LYMPHOCYTES # (AUTO) 1.4 X10^3/uL (1.3-2.9); MEAN CORPUSCULAR HEMOGLOBIN 29.5 pg (27.0-34.0); MEAN CORPUSCULAR VOLUME 84.4 fL (80.0-100.0); MEAN PLATELET VOLUME 7.9 fL (7.4-11.0); MONOCYTES % (AUTO) 13.7 % (0.0-13.0); NEUTROPHILS # (AUTO) 4.7 x10^3/uL (2.2-4.8); NEUTROPHILS % (AUTO) 64.2 % (42.0-75.0); PLATELET COUNT 264 X10^3/uL (150.0-450.0); RED BLOOD COUNT 3.73 X10^6/uL (4.7-6.0); RED CELL DISTRIBUTION WIDTH 13.5 % (11.6-16.5); WHITE BLOOD COUNT 7.3 X10^3/uL (3.6-10.0)
--- NOTE | 2017-06-19 07:53 | RAD ---
HISTORY: Follow-up pneumonia Study: Chest AP portable Comparison: CT chest 06/18/2017 Findings: The heart is within normal limits in size. No congestive heart failure is noted. Infiltrate is presen t in the right upper lobe and superior segment of the right lower lobe most consistent with pneumonia . Follow-up until complete resolution is recommended in order to exclude underlying malignancy. The r emainder of the lung henderson are clear. No pleural effusions are identified. The bony thorax is unrema rkable. IMPRESSION: Pneumonia involving the right upper lobe and superior segment of the right lower lobe. Follow-up unti l complete resolution is recommended. Reported By:
[2017-06-19 07:58] LABS: ALANINE AMINOTRANSFERASE 24 Units/L (12-78); ALBUMIN 2.6 g/dL (3.4-5.0); ALKALINE PHOSPHATASE 52 Units/L (46-116); ASPARTATE AMINO TRANSFERASE 22 Units/L (15-37); BLOOD UREA NITROGEN 16 mg/dL (7-18); CALCIUM 8.3 mg/dL (8.5-10.1); CARBON DIOXIDE 27.9 mmol/L (21-32); CHLORIDE 98 mmol/L (98-107); COR CA(FOR HYPOALB) 9.4 mg/dL (8.5-10.1); COR NA(FOR HYPERGLY) 135 mmol/L (136-145); CREATININE 0.79 mg/dL (0.70-1.30); SODIUM 135 mmol/L (136-145); TOTAL PROTEIN 6.6 g/dL (6.4-8.2); eGFR BLACK RACES > 60 (>60); eGFR NON BLACK RACES > 60 (>60)
--- NOTE | 2017-06-19 08:14 | RAD ---
HISTORY: Small bowel obstruction Study: KUB Comparison: 06/18/2017 Findings: There is an ostomy in the right lower quadrant. Once again noted are multiple dilated loops of small bowel in the upper abdomen not significantly changed from prior examinations and still consistent wit h small-bowel obstruction. There is nasogastric tube present. IMPRESSION: No significant change from the prior examination Reported By:
[2017-06-19] MEDS: ALBUMIN HUMAN 25%- 100ML 100 ML IV SCH (09:04)
[2017-06-19] MEDS: LOVENOX INJ 40 MG SYR SC SCH (09:04)
[2017-06-19] MEDS: PEPCID 20 MG IV PREMIX* 20 MG/50 ML BAG IV SCH (09:04)
[2017-06-19] MEDS: DUONEB 0.5 MG/3 MG NEB SCH ×4 (09:36→21:01)
[2017-06-19] MEDS: PULMICORT NEB TX 0.5 MG NEB SCH ×2 (09:36→21:01)
[2017-06-19] MEDS: SINGULAIR TAB 10 MG PO SCH (09:45)
[2017-06-19] MEDS: LEVAQUIN PREMIX IV 500 MG 500 MG/100 ML BAG IV SCH (10:45)
--- NOTE | 2017-06-19 10:50 | DR.PROGNOT ---
Hospital Progress Notes - Progress Note for Day of: Progress Note Date: 06/19/17 - Chief Complaint Chief Complaint: less abdominal pain , no nausea. ileostomy in functioning well ,though the xray is still showing dilated small bowel loops .. - History of Present Illness History of Present Illness: no changes in history. - Past Medical Family Social History Past Med/Fam/Surg Hx: No changes since H&P Allergies: Allergies No Known Drug Allergies Allergy (Verified 06/15/17 10:33) - Review Of Systems ROS: No change since H&P (HTN , GERD ,recurrent ulcerative colitis required resction .) - Vital Signs Vital Signs: Temperature 98.1 F Pulse Rate [Right Brachial] 75 Pulse Rate 86 Respiratory Rate 20 Blood Pressure [Left Arm] 133/77 Blood Pressure [Right Arm] 138/70 Blood Pressure 137/71 O2 Sat by Pulse Oximetry 94 - Physical Exam Oriented: Normal Eyes: Normal Ear: Normal Nose: Normal Throat: Normal Respiratory: Generalized, Diminished Cardiovascular: Normal. negative: S3, S4, Murmur, Edema : Normal GI:Auscultation: Normal GI:Palpation: Normal GI: Tenderness: Diffuse, Mild, Moderate (full abdomen . BS + , moderate amount of stool in the ileostomy bag . no wound infection ) Skin: Normal Musculoskeletal: Normal Psychiatric: Normal Speech Pattern: Clear, Appropriate - Laboratory and Diagnostics Result Diagrams: 06/19/17 05:25 06/19/17 05:25 Labs: 06/19/17 05:40 Sputum - Expectorated Sputum - Final Laboratory WBC 7.3 X10^3/uL (3.6-10.0) 06/19/17 05:25 RBC 3.73 X10^6/uL (4.7-6.0) L 06/19/17 05:25 Hgb 11.0 g/dL (13.5-18.0) L 06/19/17 05:25 Hct 31.5 % (42.0-54.0) L 06/19/17 05:25 MCV 84.4 fL (80.0-100.0) 06/19/17 05:25 MCH 29.5 pg (27.0-34.0) 06/19/17 05:25 MCHC 35.0 g/dL (33.0-35.0) 06/19/17 05:25 RDW 13.5 % (11.6-16.5) 06/19/17 05:25 Plt Count 264 X10^3/uL (150.0-450.0) 06/19/17 05:25 MPV 7.9 fL (7.4-11.0) 06/19/17 05:25 Neut % 64.2 % (42.0-75.0) 06/19/17 05:25 Lymph % 19.0 % (21.0-51.0) L 06/19/17 05:25 [place] % 13.7 % (0.0-13.0) H 06/19/17 05:25 Eos % 2.7 % (0.9-2.9) 06/19/17 05:25 Baso % 0.4 % (0.2-1.0) 06/19/17 05:25 Neut # 4.7 x10^3/uL (2.2-4.8) 06/19/17 05:25 Lymph # 1.4 X10^3/uL (1.3-2.9) 06/19/17 05:25 [place] # 1.0 x10^3/uL (0.3-0.8) H 06/19/17 05:25 Eos # 0.2 x10^3/uL (0.0-0.2) 06/19/17 05:25 Baso # 0.0 X10^3/uL (0.0-0.1) 06/19/17 05:25 Absolute Nucleated RBC 0.0 /100WBC 06/19/17 05:25 Sodium 135 mmol/L (136-145) L 06/19/17 05:25 Corrected Sodium 135 mmol/L (136-145) L 06/19/17 05:25 Potassium 3.4 mmol/L (3.5-5.1) L 06/19/17 05:25 Chloride 98 mmol/L (98-107) 06/19/17 05:25 Carbon Dioxide 27.9 mmol/L (21-32) 06/19/17 05:25 BUN 16 mg/dL (7-18) 06/19/17 05:25 Creatinine 0.79 mg/dL (0.70-1.30) 06/19/17 05:25 Est GFR (MDRD) Af Amer > 60 (>60) 06/19/17 05:25 Est GFR (MDRD) Non-Af > 60 (>60) 06/19/17 05:25 Glucose 117 mg/dL (65-99) H 06/19/17 05:25 Calcium 8.3 mg/dL (8.5-10.1) L 06/19/17 05:25 Corrected Calcium 9.4 mg/dL (8.5-10.1) 06/19/17 05:25 Magnesium 1.9 mg/dL (1.7-2.9) 06/18/17 05:00 Total Bilirubin 1.30 mg/dL (0.2-1.0) H 06/19/17 05:25 AST 22 Units/L (15-37) 06/19/17 05:25 ALT 24 Units/L (12-78) 06/19/17 05:25 Alkaline Phosphatase 52 Units/L (46-116) 06/19/17 05:25 Total Protein 6.6 g/dL (6.4-8.2) 06/19/17 05:25 Albumin 2.6 g/dL (3.4-5.0) L 06/19/17 05:25 Globulin 4.0 g/dL (2.5-4.5) 06/19/17 05:25 Albumin/Globulin Ratio 0.7 Ratio (1.1-2.1) L 06/19/17 05:25 Specimen Type Clean catch urine 06/15/17 17:55 Urine Color Straw (YELLOW) 06/15/17 17:55 Urine Appearance Slightly hazy (CLEAR) 06/15/17 17:55 Urine pH 5.0 (5.0 - 8.0) 06/15/17 17:55 Ur Specific [place] 1.025 (1.000-1.030) 06/15/17 17:55 Urine Protein 3+ (NEGATIVE) 06/15/17 17:55 Urine Glucose (UA) Negative (NEGATIVE) 06/15/17 17:55 Urine Ketones Negative (NEGATIVE) 06/15/17 17:55 Urine Occult Blood 1+ (NEGATIVE) 06/15/17 17:55 Urine Nitrite Negative (NEGATIVE) 06/15/17 17:55 Urine Bilirubin 1+ (NEGATIVE) 06/15/17 17:55 Urine Urobilinogen Normal (NORMAL) 06/15/17 17:55 Ur Leukocyte Esterase 1+ (NEGATIVE) 06/15/17 17:55 Urine RBC 2-3 /HPF (NONE SEEN) 06/15/17 17:55 Urine WBC 0-2 /HPF (NONE SEEN) 06/15/17 17:55 Ur Squamous Epith Cells Few /HPF (NEGATIVE) 06/15/17 17:55 Amorphous Sediment 1+ /HPF (NEGATIVE) 06/15/17 17:55 Urine Bacteria 1+ /HPF (NEGATIVE) 06/15/17 17:55 Hyaline Casts Few /LPF (NEGATIVE) 06/15/17 17:55 Urine Mucus Moderate /HPF (NEGATIVE) 06/15/17 17:55 Ur Culture Indicated? No/not indicated 06/15/17 17:55 - Assessment and Plan 1: post operative partial SBO ,most propably ileus type . S/P subtotal colectomy for UC. red D/C NGT. same IVF , DVT prophylaxis , IV ATB and protonix ,nutritional support and repeat abdominal xrays. clear liquid today - Problem Patient Problems: Patient Problems Dehydration (Acute) E86.0 Nausea & vomiting (Acute) R11.2 Status post ileostomy (Acute) Z93.2
[2017-06-19] MEDS: K-RIDER 10 MEQ/NS 100 ML 10 MEQ/100 ML BAG IV PRN ×2 (12:54→13:57)
[2017-06-20] MEDS: D5 1/2 NS 1000 ML 1,000 ML IV SCH ×4 (00:46→16:48)
[2017-06-20 06:03] LABS: BASOPHILS % (AUTO) 0.5 % (0.2-1.0); EOSINOPHILS # (AUTO) 0.2 x10^3/uL (0.0-0.2); EOSINOPHILS % (AUTO) 3.1 % (0.9-2.9); HEMATOCRIT 31.4 % (42.0-54.0); LYMPHOCYTES # (AUTO) 1.8 X10^3/uL (1.3-2.9); LYMPHOCYTES % (AUTO) 23.3 % (21.0-51.0); MEAN CORPUSCULAR HEMOGLOBIN 29.7 pg (27.0-34.0); MEAN CORPUSCULAR HGB CONC 35.1 g/dL (33.0-35.0); MEAN CORPUSCULAR VOLUME 84.6 fL (80.0-100.0); MEAN PLATELET VOLUME 7.7 fL (7.4-11.0); MONOCYTES # (AUTO) 1.1 x10^3/uL (0.3-0.8); MONOCYTES % (AUTO) 13.9 % (0.0-13.0); NEUTROPHILS # (AUTO) 4.6 x10^3/uL (2.2-4.8); NEUTROPHILS % (AUTO) 59.2 % (42.0-75.0); PLATELET COUNT 248 X10^3/uL (150.0-450.0); RED BLOOD COUNT 3.71 X10^6/uL (4.7-6.0); RED CELL DISTRIBUTION WIDTH 13.3 % (11.6-16.5); WHITE BLOOD COUNT 7.8 X10^3/uL (3.6-10.0)
[2017-06-20 06:16] LABS: ALANINE AMINOTRANSFERASE 30 Units/L (12-78); ALBUMIN 2.7 g/dL (3.4-5.0); ALKALINE PHOSPHATASE 56 Units/L (46-116); ASPARTATE AMINO TRANSFERASE 26 Units/L (15-37); BLOOD UREA NITROGEN 15 mg/dL (7-18); CALCIUM 8.4 mg/dL (8.5-10.1); CARBON DIOXIDE 25.4 mmol/L (21-32); CHLORIDE 98 mmol/L (98-107); COR CA(FOR HYPOALB) 9.4 mg/dL (8.5-10.1); COR NA(FOR HYPERGLY) 134 mmol/L (136-145); CREATININE 0.72 mg/dL (0.70-1.30); SODIUM 133 mmol/L (136-145); TOTAL PROTEIN 6.6 g/dL (6.4-8.2); eGFR BLACK RACES > 60 (>60); eGFR NON BLACK RACES > 60 (>60)
--- NOTE | 2017-06-20 07:01 | RAD ---
Chest AP portable Indication: Dyspnea Findings: Patchy right lung opacities abdomen improved since the prior the previous day. Heart size i s prominent with chronic interstitial changes again noted. Impression: Minimal improvement in the right lung opacity suggesting improving pneumonia. Follow-up t o resolution to exclude underlying lesion Reported By:
[2017-06-20] MEDS: DUONEB 0.5 MG/3 MG NEB SCH ×4 (09:03→20:53)
[2017-06-20] MEDS: PULMICORT NEB TX 0.5 MG NEB SCH ×2 (09:03→20:53)
[2017-06-20] MEDS: LEVAQUIN PREMIX IV 500 MG 500 MG/100 ML BAG IV SCH (09:44)
[2017-06-20] MEDS: SINGULAIR TAB 10 MG PO SCH (09:44)
[2017-06-20] MEDS: ALBUMIN HUMAN 25%- 100ML 100 ML IV SCH (09:46)
[2017-06-20] MEDS: PROTONIX INJ 40 MG VIAL IVP SCH ×2 (09:46→20:22)
[2017-06-20] MEDS: K-RIDER 10 MEQ/NS 100 ML 10 MEQ/100 ML BAG IV PRN ×2 (09:47→11:30)
[2017-06-20] MEDS: LOVENOX INJ 40 MG SYR SC SCH (09:47)
[2017-06-20] MEDS: PEPCID 20 MG IV PREMIX* 20 MG/50 ML BAG IV SCH (09:56)
--- NOTE | 2017-06-20 11:12 | DR.PROGNOT ---
Hospital Progress Notes - Progress Note for Day of: Progress Note Date: 06/20/17 - Chief Complaint Chief Complaint: less abdominal pain , no nausea. ileostomy in functioning well ,though the xray is still showing dilated small bowel loops .. - History of Present Illness History of Present Illness: no changes in history. - Past Medical Family Social History Past Med/Fam/Surg Hx: No changes since H&P Allergies: Allergies No Known Drug Allergies Allergy (Verified 06/15/17 10:33) - Review Of Systems ROS: No change since H&P (HTN , GERD ,recurrent ulcerative colitis required resction .) - Vital Signs Vital Signs: Temperature 98.4 F Pulse Rate [Right Brachial] 71 Pulse Rate 75 Respiratory Rate 20 Blood Pressure [Left Arm] 145/78 Blood Pressure [Right Arm] 137/78 Blood Pressure 137/71 O2 Sat by Pulse Oximetry 94 - Physical Exam Oriented: Normal Eyes: Normal Ear: Normal Nose: Normal Throat: Normal Respiratory: Generalized, Diminished Cardiovascular: Normal. negative: S3, S4, Murmur, Edema : Normal GI:Auscultation: Normal GI:Palpation: Normal GI: Tenderness: Diffuse, Mild, Moderate (full abdomen . BS + , moderate amount of stool in the ileostomy bag . no wound infection ) Skin: Normal Musculoskeletal: Normal Psychiatric: Normal Speech Pattern: Clear, Appropriate - Laboratory and Diagnostics Result Diagrams: 06/20/17 05:10 06/20/17 05:10 Labs: 06/19/17 05:40 Sputum - Expectorated Sputum - Final Laboratory WBC 7.8 X10^3/uL (3.6-10.0) 06/20/17 05:10 RBC 3.71 X10^6/uL (4.7-6.0) L 06/20/17 05:10 Hgb 11.0 g/dL (13.5-18.0) L 06/20/17 05:10 Hct 31.4 % (42.0-54.0) L 06/20/17 05:10 MCV 84.6 fL (80.0-100.0) 06/20/17 05:10 MCH 29.7 pg (27.0-34.0) 06/20/17 05:10 MCHC 35.1 g/dL (33.0-35.0) H 06/20/17 05:10 RDW 13.3 % (11.6-16.5) 06/20/17 05:10 Plt Count 248 X10^3/uL (150.0-450.0) 06/20/17 05:10 MPV 7.7 fL (7.4-11.0) 06/20/17 05:10 Neut % 59.2 % (42.0-75.0) 06/20/17 05:10 Lymph % 23.3 % (21.0-51.0) 06/20/17 05:10 [place] % 13.9 % (0.0-13.0) H 06/20/17 05:10 Eos % 3.1 % (0.9-2.9) H 06/20/17 05:10 Baso % 0.5 % (0.2-1.0) 06/20/17 05:10 Neut # 4.6 x10^3/uL (2.2-4.8) 06/20/17 05:10 Lymph # 1.8 X10^3/uL (1.3-2.9) 06/20/17 05:10 [place] # 1.1 x10^3/uL (0.3-0.8) H 06/20/17 05:10 Eos # 0.2 x10^3/uL (0.0-0.2) 06/20/17 05:10 Baso # 0.0 X10^3/uL (0.0-0.1) 06/20/17 05:10 Absolute Nucleated RBC 0.1 /100WBC 06/20/17 05:10 Sodium 133 mmol/L (136-145) L 06/20/17 05:10 Corrected Sodium 134 mmol/L (136-145) L 06/20/17 05:10 Potassium 3.4 mmol/L (3.5-5.1) L 06/20/17 05:10 Chloride 98 mmol/L (98-107) 06/20/17 05:10 Carbon Dioxide 25.4 mmol/L (21-32) 06/20/17 05:10 BUN 15 mg/dL (7-18) 06/20/17 05:10 Creatinine 0.72 mg/dL (0.70-1.30) 06/20/17 05:10 Est GFR (MDRD) Af Amer > 60 (>60) 06/20/17 05:10 Est GFR (MDRD) Non-Af > 60 (>60) 06/20/17 05:10 Glucose 121 mg/dL (65-99) H 06/20/17 05:10 Calcium 8.4 mg/dL (8.5-10.1) L 06/20/17 05:10 Corrected Calcium 9.4 mg/dL (8.5-10.1) 06/20/17 05:10 Magnesium 1.9 mg/dL (1.7-2.9) 06/18/17 05:00 Total Bilirubin 1.00 mg/dL (0.2-1.0) 06/20/17 05:10 AST 26 Units/L (15-37) 06/20/17 05:10 ALT 30 Units/L (12-78) 06/20/17 05:10 Alkaline Phosphatase 56 Units/L (46-116) 06/20/17 05:10 Total Protein 6.6 g/dL (6.4-8.2) 06/20/17 05:10 Albumin 2.7 g/dL (3.4-5.0) L 06/20/17 05:10 Globulin 3.9 g/dL (2.5-4.5) 06/20/17 05:10 Albumin/Globulin Ratio 0.7 Ratio (1.1-2.1) L 06/20/17 05:10 Specimen Type Clean catch urine 06/15/17 17:55 Urine Color Straw (YELLOW) 06/15/17 17:55 Urine Appearance Slightly hazy (CLEAR) 06/15/17 17:55 Urine pH 5.0 (5.0 - 8.0) 06/15/17 17:55 Ur Specific [place] 1.025 (1.000-1.030) 06/15/17 17:55 Urine Protein 3+ (NEGATIVE) 06/15/17 17:55 Urine Glucose (UA) Negative (NEGATIVE) 06/15/17 17:55 Urine Ketones Negative (NEGATIVE) 06/15/17 17:55 Urine Occult Blood 1+ (NEGATIVE) 06/15/17 17:55 Urine Nitrite Negative (NEGATIVE) 06/15/17 17:55 Urine Bilirubin 1+ (NEGATIVE) 06/15/17 17:55 Urine Urobilinogen Normal (NORMAL) 06/15/17 17:55 Ur Leukocyte Esterase 1+ (NEGATIVE) 06/15/17 17:55 Urine RBC 2-3 /HPF (NONE SEEN) 06/15/17 17:55 Urine WBC 0-2 /HPF (NONE SEEN) 06/15/17 17:55 Ur Squamous Epith Cells Few /HPF (NEGATIVE) 06/15/17 17:55 Amorphous Sediment 1+ /HPF (NEGATIVE) 06/15/17 17:55 Urine Bacteria 1+ /HPF (NEGATIVE) 06/15/17 17:55 Hyaline Casts Few /LPF (NEGATIVE) 06/15/17 17:55 Urine Mucus Moderate /HPF (NEGATIVE) 06/15/17 17:55 Ur Culture Indicated? No/not indicated 06/15/17 17:55 - Assessment and Plan 1: post operative partial SBO ,most propably ileus type . S/P subtotal colectomy for UC. pneumonia. advance diet as tolerated. same IVF , DVT prophylaxis , IV ATB and protonix ,nutritional support and repeat abdominal xrays. soft tiet as tolerated . - Problem Patient Problems: Patient Problems Dehydration (Acute) E86.0 Nausea & vomiting (Acute) R11.2 Status post ileostomy (Acute) Z93.2
[2017-06-21] MEDS: D5 1/2 NS 1000 ML 1,000 ML IV SCH ×2 (00:56→11:10)
[2017-06-21 06:59] LABS: ALANINE AMINOTRANSFERASE 50 Units/L (12-78); ALBUMIN 2.8 g/dL (3.4-5.0); ALKALINE PHOSPHATASE 65 Units/L (46-116); ASPARTATE AMINO TRANSFERASE 45 Units/L (15-37); BLOOD UREA NITROGEN 9 mg/dL (7-18); CALCIUM 8.1 mg/dL (8.5-10.1); CARBON DIOXIDE 22.8 mmol/L (21-32); CHLORIDE 98 mmol/L (98-107); COR CA(FOR HYPOALB) 9.1 mg/dL (8.5-10.1); COR NA(FOR HYPERGLY) 133 mmol/L (136-145); SODIUM 133 mmol/L (136-145); TOTAL PROTEIN 6.7 g/dL (6.4-8.2); eGFR BLACK RACES > 60 (>60); eGFR NON BLACK RACES > 60 (>60)
--- NOTE | 2017-06-21 07:32 | RAD ---
HISTORY: Abnormal chest x-ray Study: Single-view chest Comparison: 06/20/2017 Findings: The trachea is midline. The cardiac silhouette is enlarged with a tortuous thoracic aorta. Improved aeration of the right hilar and infrahilar airspace opacity consistent with resolving bronchopneumon ia. Continued follow-up to complete resolution will be needed to exclude underlying lesion. The bony thorax is unremarkable. IMPRESSION: Improved aeration of the right hilar and infrahilar regions consistent with resolving bronchopneumoni a. Continued follow-up to complete resolution will be needed to exclude underlying hilar lesion. Reported By:
[2017-06-21 08:18] VITALS: BP 117/67
[2017-06-21] MEDS: ALBUMIN HUMAN 25%- 100ML 100 ML IV SCH (08:37)
[2017-06-21] MEDS: LEVAQUIN PREMIX IV 500 MG 500 MG/100 ML BAG IV SCH (08:37)
[2017-06-21] MEDS: PROTONIX INJ 40 MG VIAL IVP SCH (08:37)
[2017-06-21] MEDS: LOVENOX INJ 40 MG SYR SC SCH (08:38)
[2017-06-21] MEDS: SINGULAIR TAB 10 MG PO SCH (08:38)
[2017-06-21] MEDS: PULMICORT NEB TX 0.5 MG NEB SCH (09:40)
[2017-06-21] MEDS: DUONEB 0.5 MG/3 MG NEB SCH (09:40)
[2017-06-21] MEDS: PEPCID 20 MG IV PREMIX* 20 MG/50 ML BAG IV SCH (11:10)
== END 2017-06-21 11:05 | disposition home or self-care (01) | DRG 388 ==
LOC: MED/SURG 09:36 → OBSVTOIN 09:36
PROVIDERS: ADMIT Internal Medicine; ATTEND Internal Medicine
PROC: 0D9670Z Drainage of Stomach with Drainage Device, Via Natural or Artificial Opening (ICD-10-PCS; principal; 2017-06-16)
DX: K91.30 Postprocedural intestinal obstruction, unspecified as to partial versus complete (principal); Y83.2 Surgical operation with anastomosis, bypass or graft as the cause of abnormal reaction of the patient, or of later complication, without mention of misadventure at the time of the procedure; E86.0 Dehydration; K56.690 Other partial intestinal obstruction; R11.2 Nausea with vomiting, unspecified; R10.84 Generalized abdominal pain; Z93.2 Ileostomy status; J18.8 Other pneumonia, unspecified organism; Y95 Nosocomial condition
CPT/HCPCS: 36415; 71045; 71260; 74018; 74022; 74176; 80053; 81001; 83735; 84132; 85025; 87070; 87205; 94640; 94760; A4222; C9113; P9047; S0028; J1650; J1956; J2270; J2405; J2550; J3480; J3490; J7042; J7620; J7626

== ENCOUNTER 2020-11-02 15:46 | Observation (INO) ==
--- NOTE | 2020-11-02 16:43 | DR.GENAD ---
HPI Time Seen Time Seen by Provider: 11/02/20 16:35 PCP Primary Care Physician: SANDER PADRON HPI Comment HPI Comment: Patient presents to the ED with the complaint of anemia. 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 Has colostomy bag. Was sent to ED today because of Hgb of 6 reported from outpatient labs. Complaint/Symptoms Chief Complaint:: PATIENT CAME TO ER REPORTS HOME HEALTH NURSE TOLD PATIENT TO GO TO ER, HGB 6.0. COVID-19 Coronavirus risk:travel/contact w/high risk person: No Has patient experienced Coronavirus symptoms: No Source History Provided: Patient Mode of Arrival Mode of Arrival: Wheelchair Timing Onset of Chief Complaint: 11/01/20 PMH PMH Past Medical History: Yes Past Medical History: Anemia Past Medical History Comment: SHORT BOWEL SYNDROME Past Surgical History: Yes Surgical History: Bowel Resection and Other Family History History of Family Medical Conditions: Yes Family Medical History: Cancer, Coronary Artery Disease and Hypertension Social History Do you use any recreational Drugs:: No Travel Risk Coronavirus risk:travel/contact w/high risk person: No Has patient experienced Coronavirus symptoms: No Infectious screening In the last 2 months have you had wt loss of >10#?: NO Have you had fever, night sweats or hemotysis?: No Have you traveled outside the country in the last 6 months?: No Isolation: Standard ROS Review of Systems Constitutional: See HPI Hematologic/Lymphatic: See HPI and Anemia All Other Systems: Reviewed and Negative PE Vital Signs Vitals: Temperature 97.3 F Pulse Rate 104 Respiratory Rate 18 Blood Pressure [Left Arm] 109/73 Blood Pressure [Right Arm] 97/63 Blood Pressure 113/73 O2 Sat by Pulse Oximetry 99 General Limitations: No Limitations General Appearance: Alert and In No Apparent Distress Head Head Exam: Normal Inspection, Atraumatic and Normocephalic Eyes Eye exam: Normal Appearance, EOMI and Other (pale conjunctiva) ENT ENT Exam: Normal Exam and Normal Oropharynx Neck Neck Exam: Normal Inspection and Trachea Midline Chest Chest Inspection: Normal Inspection and Symmetric Chest Wall Rise Respiratory Respiratory Exam: Normal Lung Sounds Bilat Respiratory Exam: Bilateral: Clear to Auscultation Cardiovascular Cardiovascular Exam: Regular Rate, Normal Rhythm and Normal Heart Sounds Abdominal Exam Abdominal Exam: Other (+colostomy) ROR Labs Reviewed Laboratory Results Reviewed?: Yes Result Diagrams: 11/02/20 18:02 11/02/20 18:02 Laboratory: WBC 7.8 X10^3/uL (3.6-10.0) 11/02/20 18:02 RBC 2.57 X10^6/uL (4.7-6.0) L 11/02/20 18:02 Hgb 7.3 g/dL (13.5-18.0) L 11/02/20 18:02 Hct 22.2 % (42.0-54.0) L 11/02/20 18:02 MCV 86.1 fL (80.0-100.0) 11/02/20 18:02 MCH 28.5 pg (27.0-34.0) 11/02/20 18: MCHC 33.0 g/dL (33.0-35.0) 11/02/20 18: RDW 15.8 % (11.6-16.5) 11/02/20 18:02 Plt Count 427 X10^3/uL (150.0-450.0) 11/02/20 18:02 MPV 6.3 fL (7.4-11.0) L 11/02/20 18:02 Neut % (Auto) 50.6 % (42.0-75.0) 11/02/20 18:02 Lymph % (Auto) 34.5 % (21.0-51.0) 11/02/20 18:02 [place] % (Auto) 12.8 % (0.0-13.0) 11/02/20 18:02 Eos % (Auto) 1.8 % (0.9-2.9) 11/02/20 18:02 Baso % (Auto) 0.3 % (0.2-1.0) 11/02/20 18:02 Neut # (Auto) 4.0 x10^3/uL (2.2-4.8) 11/02/20 18:02 Lymph # (Auto) 2.7 X10^3/uL (1.3-2.9) 11/02/20 18:02 [place] # (Auto) 1.0 x10^3/uL (0.3-0.8) H 11/02/20 18:02 Eos # (Auto) 0.1 x10^3/uL (0.0-0.2) 11/02/20 18:02 Baso # (Auto) 0.0 X10^3/uL (0.0-0.1) 11/02/20 18:02 Absolute Nucleated RBC 0.0 /100WBC 11/02/20 18:02 Sodium 132 mmol/L (136-145) L 11/02/20 18:02 Corrected Sodium TNP 11/02/20 18:02 Potassium 4.4 mmol/L (3.5-5.1) 11/02/20 18:02 Chloride 100 mmol/L (98-107) 11/02/20 18:02 Carbon Dioxide 27.7 mmol/L (21-32) 11/02/20 18:02 BUN 28 mg/dL (7-18) H 11/02/20 18:02 Creatinine 0.75 mg/dL (0.70-1.30) 11/02/20 18:02 Est GFR (MDRD) Af Amer > 60 (>60) 11/02/20 18:02 Est GFR (MDRD) Non-Af > 60 (>60) 11/02/20 18:02 Glucose 84 mg/dL (65-99) 11/02/20 18:02 Calcium 8.4 mg/dL (8.5-10.1) L 11/02/20 18:02 Corrected Calcium 10.3 mg/dL (8.5-10.1) H 11/02/20 18:02 Total Bilirubin 0.50 mg/dL (0.2-1.0) 11/02/20 18:02 AST 12 Units/L (15-37) L 11/02/20 18:02 ALT 13 Units/L (12-78) 11/02/20 18:02 Alkaline Phosphatase 125 Units/L (46-116) H 11/02/20 18:02 Total Protein 7.2 g/dL (6.4-8.2) 11/02/20 18:02 Albumin 1.6 g/dL (3.4-5.0) L 11/02/20 18:02 Globulin 5.6 g/dL (2.5-4.5) H 11/02/20 18:02 Albumin/Globulin Ratio 0.3 Ratio (1.1-2.1) L 11/02/20 18:02 Blood Type O POSITIVE 11/02/20 18:02 Antibody Screen Negative 11/02/20 18:02 Opioid Opioid Risk Tool Age (Hubert box if 16-45): No History of Preadolescent Sexual Abuse: No Total: 0 Total Score Risk Category: Low Risk Copyright: Rock MAST predicting aberrant behaviors Diagnosis Discharge Problem: Anemia Qualifiers: Anemia type: unspecified type Qualified Code(s): D64.9 - Anemia, unspecified
[2020-11-02 18:17] LABS: BASOPHILS % (AUTO) 0.3 % (0.2-1.0); EOSINOPHILS # (AUTO) 0.1 x10^3/uL (0.0-0.2); EOSINOPHILS % (AUTO) 1.8 % (0.9-2.9); HEMATOCRIT 22.2 % (42.0-54.0); HEMOGLOBIN 7.3 g/dL (13.5-18.0); LYMPHOCYTES # (AUTO) 2.7 X10^3/uL (1.3-2.9); LYMPHOCYTES % (AUTO) 34.5 % (21.0-51.0); MEAN CORPUSCULAR HEMOGLOBIN 28.5 pg (27.0-34.0); MEAN CORPUSCULAR VOLUME 86.1 fL (80.0-100.0); MEAN PLATELET VOLUME 6.3 fL (7.4-11.0); MONOCYTES % (AUTO) 12.8 % (0.0-13.0); NEUTROPHILS % (AUTO) 50.6 % (42.0-75.0); PLATELET COUNT 427 X10^3/uL (150.0-450.0); RED BLOOD COUNT 2.57 X10^6/uL (4.7-6.0); RED CELL DISTRIBUTION WIDTH 15.8 % (11.6-16.5); WHITE BLOOD COUNT 7.8 X10^3/uL (3.6-10.0)
[2020-11-02 18:24] LABS: ALANINE AMINOTRANSFERASE 13 Units/L (12-78); ALBUMIN 1.6 g/dL (3.4-5.0); ALKALINE PHOSPHATASE 125 Units/L (46-116); ASPARTATE AMINO TRANSFERASE 12 Units/L (15-37); BLOOD UREA NITROGEN 28 mg/dL (7-18); CALCIUM 8.4 mg/dL (8.5-10.1); CARBON DIOXIDE 27.7 mmol/L (21-32); CHLORIDE 100 mmol/L (98-107); COR CA(FOR HYPOALB) 10.3 mg/dL (8.5-10.1); CREATININE 0.75 mg/dL (0.70-1.30); SODIUM 132 mmol/L (136-145); TOTAL PROTEIN 7.2 g/dL (6.4-8.2); eGFR NON BLACK RACES > 60 (>60)
[2020-11-02] MEDS ORDERED: VITAMIN B-12 INJ IM SCH (20:53)
[2020-11-02] MEDS ORDERED: ZOFRAN TAB 4 MG PO PRN (20:53)
[2020-11-02] MEDS ORDERED: VITAMIN D (1.25MG) PO SCH (21:00)
[2020-11-02] MEDS: NS 1000 ML 1,000 ML IV SCH (21:58)
[2020-11-02] MEDS: WELCHOL PO SCH (21:58)
[2020-11-02] MEDS: PROTONIX TAB 40 MG PO SCH (21:59)
[2020-11-02] MEDS: ELIQUIS PO SCH (21:59)
[2020-11-02] MEDS: LOMOTIL PO SCH (21:59)
[2020-11-02 22:52] VITALS: BMI 26.6
[2020-11-02] MEDS: PEPCID TAB 40 MG PO SCH (23:09)
[2020-11-03] MEDS ORDERED: NS 250 ML IV 250 ML IV ONE (00:34)
[2020-11-03] MEDS: WELCHOL PO SCH ×3 (06:30→22:00)
[2020-11-03 07:17] LABS: BASOPHILS % (AUTO) 0.6 % (0.2-1.0); EOSINOPHILS # (AUTO) 0.2 x10^3/uL (0.0-0.2); EOSINOPHILS % (AUTO) 2.6 % (0.9-2.9); HEMATOCRIT 28.3 % (42.0-54.0); LYMPHOCYTES % (AUTO) 40.7 % (21.0-51.0); MEAN CORPUSCULAR HEMOGLOBIN 28.8 pg (27.0-34.0); MEAN CORPUSCULAR HGB CONC 33.7 g/dL (33.0-35.0); MEAN CORPUSCULAR VOLUME 85.6 fL (80.0-100.0); MEAN PLATELET VOLUME 6.4 fL (7.4-11.0); MONOCYTES # (AUTO) 0.9 x10^3/uL (0.3-0.8); MONOCYTES % (AUTO) 13.1 % (0.0-13.0); NEUTROPHILS # (AUTO) 3.1 x10^3/uL (2.2-4.8); PLATELET COUNT 396 X10^3/uL (150.0-450.0); RED BLOOD COUNT 3.31 X10^6/uL (4.7-6.0); WHITE BLOOD COUNT 7.3 X10^3/uL (3.6-10.0)
[2020-11-03 07:20] LABS: HEMOGLOBIN 9.5 g/dL (13.5-18.0)
[2020-11-03] MEDS ORDERED: PATIENT'S HOME MEDICATION (Iron-Folic Acid-Mv, Min Cmb#15 [Hemocyte-Plus] 106 mg iron- 1 m PO SCH (09:00)
[2020-11-03] MEDS ORDERED: VITAMIN B-12 INJ IM SCH (09:00)
[2020-11-03] MEDS: LOMOTIL PO SCH ×4 (09:48→22:00)
[2020-11-03] MEDS: NYSTATIN SUSP PO SCH ×3 (09:48→22:05)
[2020-11-03] MEDS: ELIQUIS PO SCH ×2 (09:49→22:00)
[2020-11-03] MEDS: PEPCID TAB 40 MG PO SCH ×2 (09:49→22:01)
[2020-11-03] MEDS: PROTONIX TAB 40 MG PO SCH (09:49)
[2020-11-03] MEDS: SINGULAIR TAB 10 MG PO SCH (09:49)
[2020-11-03] MEDS: NS 1000 ML 1,000 ML IV SCH ×2 (10:47→22:02)
[2020-11-03 11:35] LABS: BLOOD UREA NITROGEN 23 mg/dL (7-18); CALCIUM 8.5 mg/dL (8.5-10.1); CARBON DIOXIDE 25.7 mmol/L (21-32); CHLORIDE 99 mmol/L (98-107); CREATININE 0.75 mg/dL (0.70-1.30); eGFR NON BLACK RACES > 60 (>60)
[2020-11-03 11:36] LABS: SODIUM 131 mmol/L (136-145)
[2020-11-03] MEDS: LEVSIN/MAALOX/LIDOC VISC PO PRN (15:53)
--- NOTE | 2020-11-03 17:03 | DR.H&P ---
H&P History & Physical for Day of: H&P Date: 11/03/20 Chief Complaint Chief Complaint: abnormal labs, anemia Allergies Allergies Allergy/AdvReac Type Severity Reaction Status Date / Time No Known Drug Allergies Allergy Verified 07/04/20 13:38 History of Present Illness History of Present Illness: Mr Donohue is a 54y/o male with a PMH of Ulcerative colitis s/p bowel resection s/p colostomy, short-gut syndrome, chronic anemia, PE/DVT s/p IVC filter presented with low hemoglobin. Patient has weekly labs done and was told yesterday his hgb was 6. He was advised to go to the ER. Patient has had several ER visits and admissions for blood transfusions within the past 4-6 weeks. His baseline Hgb is between 7-8. He denies any active bleeding. He does see Dr. Schultz and is scheduled for EGD/colonoscopy in 2 weeks. He also sees Nephro for anemia. He was admitted last month for PE and right LE DVT, s/p thrombolysis and IVC filter placement on Eliquis. Patient is also on TPN for nutrition. He does also eat orally. Labs: Hgb 7.3 on admission, now 9.5, Na 131 BUN/Cr: 23/0.75 FOBT + Patient received 2 units of PRBCs. Plan: increase IVF to 100cc/hr, patient will have someone drop off his TPN bag and will resume that as per home schedule for 12hrs on per day. Continue IV protonix and Pepcid. Add GI cocktail. Continue Eliquis for now as patient had extensive PE and DVT last month. He is not actively bleeding. Monitor H/H. Will check with Dr. Schultz on Thursday if patient can be scheduled for procedure early this week rather than outpatient due to recurrent transfusions in the past month. Patient's stool is also watery and khoury appearing in the bag. Will check stool studies and C diff. Continue colostomy care. Continue home medications. Monitor AM labs and imaging. Time spent for clinical assessment, reviewing labs/imaging, physical exam, de cision making and documentation greater than 75 mins. Past Medical History Past Medical History: Anemia Additional Medical History: ULCERATIVE COLITIS Bowel resection PE/DVT Past Surgical History Surgical History: Bowel Resection and Other Additional Surgical History: ILEOSTOMY IVC filter Family History Family Medical History: Cancer, Coronary Artery Disease and Hypertension Social History Type of Tobacco Use: None Alcohol Use: None Drug Use: None Prescription drug monitoring program results: PDMP reviewed and no concerns identified Medications Home Medications: No Known Drug Allergies Allergy (Verified 07/04/20 13:38) CONTINUE taking the following medications apixaban [Eliquis] 5 mg PO BID 11/02/20 [History] cholestyramine-aspartame [Cholestyramine Light] 1 ea PO QID 11/02/20 [History] colesevelam [WelChol] 3.75 g PO DAILY 11/02/20 [History] diphenoxylate-atropine 4 tab PO QID PRN 11/02/20 [History] furosemide 40 mg PO BID 11/02/20 [History] montelukast 10 mg PO DAILY 11/02/20 [History] pantoprazole 40 mg PO BID 11/02/20 [History] polysaccharide iron complex [Poly-Iron] 150 mg PO BID 11/02/20 [History] potassium chloride 20 meq PO QID 11/02/20 [History] temazepam 30 mg PO HS 11/02/20 [History] Labs Result Diagrams: 11/03/20 07:05 11/03/20 07:05 Labs: Laboratory WBC 7.3 X10^3/uL (3.6-10.0) 11/03/20 07:05 RBC 3.31 X10^6/uL (4.7-6.0) L 11/03/20 07:05 Hgb 9.5 g/dL (13.5-18.0) L D 11/03/20 07:05 Hct 28.3 % (42.0-54.0) L 11/03/20 07:05 MCV 85.6 fL (80.0-100.0) 11/03/20 07:05 MCH 28.8 pg (27.0-34.0) 11/03/20 07:05 MCHC 33.7 g/dL (33.0-35.0) 11/03/20 07:05 RDW 15.0 % (11.6-16.5) 11/03/20 07:05 Plt Count 396 X10^3/uL (150.0-450.0) 11/03/20 07:05 MPV 6.4 fL (7.4-11.0) L 11/03/20 07:05 Neut % (Auto) 43.0 % (42.0-75.0) 11/03/20 07:05 Lymph % (Auto) 40.7 % (21.0-51.0) 11/03/20 07:05 [place] % (Auto) 13.1 % (0.0-13.0) H 11/03/20 07:05 Eos % (Auto) 2.6 % (0.9-2.9) 11/03/20 07:05 Baso % (Auto) 0.6 % (0.2-1.0) 11/03/20 07:05 Neut # (Auto) 3.1 x10^3/uL (2.2-4.8) 11/03/20 07:05 Lymph # (Auto) 3.0 X10^3/uL (1.3-2.9) H 11/03/20 07:05 [place] # (Auto) 0.9 x10^3/uL (0.3-0.8) H 11/03/20 07:05 Eos # (Auto) 0.2 x10^3/uL (0.0-0.2) 11/03/20 07:05 Baso # (Auto) 0.0 X10^3/uL (0.0-0.1) 11/03/20 07:05 Absolute Nucleated RBC 0.1 /100WBC 11/03/20 07:05 Sodium 131 mmol/L (136-145) L 11/03/20 07:05 Corrected Sodium TNP 11/03/20 07:05 Potassium 4.9 mmol/L (3.5-5.1) 11/03/20 07:05 Chloride 99 mmol/L (98-107) 11/03/20 07:05 Carbon Dioxide 25.7 mmol/L (21-32) 11/03/20 07:05 BUN 23 mg/dL (7-18) H 11/03/20 07:05 Creatinine 0.75 mg/dL (0.70-1.30) 11/03/20 07:05 Est GFR (MDRD) Af Amer > 60 (>60) 11/03/20 07:05 Est GFR (MDRD) Non-Af > 60 (>60) 11/03/20 07:05 Glucose 81 mg/dL (65-99) 11/03/20 07:05 POC Glucose (mg/dL) 90 mg/dL (65-99) 11/03/20 11:53 Calcium 8.5 mg/dL (8.5-10.1) 11/03/20 07:05 Corrected Calcium 10.3 mg/dL (8.5-10.1) H 11/02/20 18:02 Total Bilirubin 0.50 mg/dL (0.2-1.0) 11/02/20 18:02 AST 12 Units/L (15-37) L 11/02/20 18:02 ALT 13 Units/L (12-78) 11/02/20 18:02 Alkaline Phosphatase 125 Units/L (46-116) H 11/02/20 18:02 Total Protein 7.2 g/dL (6.4-8.2) 11/02/20 18:02 Albumin 1.6 g/dL (3.4-5.0) L 11/02/20 18:02 Globulin 5.6 g/dL (2.5-4.5) H 11/02/20 18:02 Albumin/Globulin Ratio 0.3 Ratio (1.1-2.1) L 11/02/20 18:02 Stool Description 95 g. brower/liquid 11/02/20 23:15 Stl Occult Blood (IFOB) Positive (NEGATIVE) A 11/02/20 23:15 SARS-CoV-2 (PCR) Negative (NEGATIVE) 11/02/20 18:50 Influenza Type A (PCR) Negative (NEGATIVE) 11/02/20 18:50 Influenza Type B (PCR) Negative (NEGATIVE) 11/02/20 18:50 RSV (PCR) Negative (NEGATIVE) 11/02/20 18:50 Blood Type O POSITIVE 11/02/20 18:02 Antibody Screen Negative 11/02/20 18:02 Crossmatch See Detail 11/02/20 18:02 Review of Systems Constitutional: Weakness Eyes: No Symptoms Reported ENT: No Symptoms Reported Respiratory: No Symptoms Reported Cardiovascular: No Symptoms Reported Gastrointestinal: Nausea and Diarrhea Genitourinary: No Symptoms Reported Musculoskeletal: No Symptoms Reported Skin: No Symptoms Reported Neurological: No Symptoms Reported Physical Exam Vital Signs: Temperature 98.9 F Pulse Rate [Left] 75 Pulse Rate 104 Respiratory Rate 18 Blood Pressure [Left Arm] 119/69 Blood Pressure [Right Arm] 97/63 Blood Pressure 113/73 O2 Sat by Pulse Oximetry 97 Oriented: Normal Eyes: Normal Ear: Normal Nose: Normal Throat: Normal Respiratory: Clear Throughout Cardiovascular: Normal Auscultation: Bowel Sounds: Normal Palpation: Normal Tenderness: Normal and Other (colostomy intact, watery khoury stool noted, no surrounding erythema, non-tender ) Skin: Normal Musculoskeletal: Normal Psychiatric: Normal Mood Description: Calm Affect: Normal Speech Pattern: Clear and Appropriate Assessment/Plan (1) GI bleed: Qualifiers: GI bleed type/associated pathology: melena Qualified Code(s): K92.1 - Melena Status: Acute (2) Anemia: Qualifiers: Anemia type: unspecified type Qualified Code(s): D64.9 - Anemia, unspecified Status: Acute (3) Positive occult stool blood test: Status: Acute (4) Hyponatremia: Status: Acute (5) Status post ileostomy: Status: Acute (6) Pulmonary emboli: Qualifiers: Acute cor pulmonale presence: unspecified Chronicity: acute Pulmonary embolism type: unspecified Qualified Code(s): I26.99 - Other pulmonary embolism without acute cor pulmonale Status: Acute (7) Right leg DVT: Qualifiers: Affected thrombotic vein of extremity: unspecified vein of extremity Chronicity: acute Qualified Code(s): I82.401 - Acute embolism and thrombosis of unspecified deep veins of right lower extremity Status: Acute Review H&P Reviewed: Yes Patient was examined?: Yes
[2020-11-03] MEDS: PROTONIX INJ 40 MG VIAL IVP SCH (22:01)
[2020-11-03] MEDS ORDERED: DUONEB 0.5 MG/3 MG (3 mL) NEB PRN (23:51)
[2020-11-03] MEDS ORDERED: ATIVAN INJ 2 MG VIAL IVP ONE (23:54)
[2020-11-04] MEDS: LEVSIN/MAALOX/LIDOC VISC PO PRN (00:18)
[2020-11-04 05:36] LABS: BASOPHILS # (AUTO) 0.1 X10^3/uL (0.0-0.1); BASOPHILS % (AUTO) 0.8 % (0.2-1.0); EOSINOPHILS # (AUTO) 0.1 x10^3/uL (0.0-0.2); EOSINOPHILS % (AUTO) 1.3 % (0.9-2.9); HEMATOCRIT 26.7 % (42.0-54.0); HEMOGLOBIN 9.1 g/dL (13.5-18.0); LYMPHOCYTES % (AUTO) 35.3 % (21.0-51.0); MEAN CORPUSCULAR HEMOGLOBIN 29.1 pg (27.0-34.0); MEAN CORPUSCULAR HGB CONC 33.9 g/dL (33.0-35.0); MEAN CORPUSCULAR VOLUME 85.7 fL (80.0-100.0); MEAN PLATELET VOLUME 6.6 fL (7.4-11.0); MONOCYTES # (AUTO) 1.1 x10^3/uL (0.3-0.8); MONOCYTES % (AUTO) 12.9 % (0.0-13.0); NEUTROPHILS # (AUTO) 4.2 x10^3/uL (2.2-4.8); NEUTROPHILS % (AUTO) 49.7 % (42.0-75.0); PLATELET COUNT 388 X10^3/uL (150.0-450.0); RED BLOOD COUNT 3.12 X10^6/uL (4.7-6.0); RED CELL DISTRIBUTION WIDTH 14.9 % (11.6-16.5); WHITE BLOOD COUNT 8.4 X10^3/uL (3.6-10.0)
[2020-11-04] MEDS: WELCHOL PO SCH ×3 (05:57→21:00)
[2020-11-04 05:58] LABS: ALANINE AMINOTRANSFERASE 11 Units/L (12-78); ALBUMIN 1.5 g/dL (3.4-5.0); ALKALINE PHOSPHATASE 106 Units/L (46-116); ASPARTATE AMINO TRANSFERASE 10 Units/L (15-37); BLOOD UREA NITROGEN 26 mg/dL (7-18); CARBON DIOXIDE 28.5 mmol/L (21-32); CHLORIDE 100 mmol/L (98-107); COR NA(FOR HYPERGLY) 131 mmol/L (136-145); CREATININE 0.85 mg/dL (0.70-1.30); SODIUM 131 mmol/L (136-145); eGFR NON BLACK RACES > 60 (>60)
[2020-11-04] MEDS: NS 1000 ML 1,000 ML IV SCH ×2 (06:20→10:04)
[2020-11-04] MEDS: HEMOCYTE-PLUS PO SCH (09:51)
[2020-11-04] MEDS: ELIQUIS PO SCH ×2 (09:51→20:55)
[2020-11-04] MEDS: LOMOTIL PO SCH ×4 (09:51→20:54)
[2020-11-04] MEDS: PEPCID TAB 40 MG PO SCH ×2 (09:52→21:01)
[2020-11-04] MEDS: NYSTATIN SUSP PO SCH (09:52)
[2020-11-04] MEDS: PROTONIX INJ 40 MG VIAL IVP SCH ×2 (09:52→20:54)
[2020-11-04] MEDS: SINGULAIR TAB 10 MG PO SCH (09:52)
[2020-11-04] MEDS ORDERED: CULTURELLE PRO-WELL PROBIOTIC CAP PO SCH (13:00)
--- NOTE | 2020-11-04 15:00 | PCM.PROG ---
Progress Note Progress Note for Day of Date of Exam: 11/04/20 Subjective Subjective: Patient seen at bedside, no events overnight. He states he feels better today. He still has a lot of output from his ostomy. It's not khoury anymore, greenish watery stool. His TPN was restarted yesterday. He has been eating well. Labs: Hgb 9.1 Plt 388 WBC 8.4 Na: 131 BUN/Cr 26/0.85 Glucose 113 Campy (-) C.diff (-) Fecan WBC + Plan: continue to monitor H/H, check with Dr. Schultz in the AM about rescheduling EGD to early this week if possible. Will start Flagyl. Continue IV protonix, Pepcid and GI cocktail. Continue gentle hydration and TPN. Continue home medications. Monitor AM labs and imaging. Past Medical Family Social History Past Med/Fam/Surg Hx: No changes since H&P Allergies: Allergies No Known Drug Allergies Allergy (Verified 07/04/20 13:38) Review of Systems ROS: No change since H&P Vital Signs and I&O's Vital Signs: Temperature 98.0 F Pulse Rate [Left] 80 Pulse Rate 104 Respiratory Rate 18 Blood Pressure [Left Arm] 119/69 Blood Pressure [Right Arm] 106/68 Blood Pressure 113/73 O2 Sat by Pulse Oximetry 94 Intake and Output: Intake & Output 11/01/20 11/02/20 11/03/20 11/04/20 23:59 23:59 23:59 23:59 Intake Total 343 / 343 2401 / 2401 200 / 200 Balance 343 / 343 2401 / 2401 200 / 200 Physical Exam Oriented: Normal Eyes: Normal Ear: Normal Nose: Normal Throat: Normal Respiratory: Normal Cardiovascular: Normal Auscultation: Bowel Sounds: Normal Tenderness: Normal and Other (colostomy intact, watery green stool noted, no surrounding erythema, non-tender ) Skin: Normal Musculoskeletal: Normal Psychiatric: Normal Mood Description: Calm Affect: Normal Speech Pattern: Clear and Appropriate Laboratory and Diagnostics Result Diagrams: 11/04/20 05:18 11/04/20 05:18 Labs: 11/03/20 17:30 Stool - Final Laboratory WBC 8.4 X10^3/uL (3.6-10.0) 11/04/20 05:18 RBC 3.12 X10^6/uL (4.7-6.0) L 11/04/20 05:18 Hgb 9.1 g/dL (13.5-18.0) L 11/04/20 05:18 Hct 26.7 % (42.0-54.0) L 11/04/20 05:18 MCV 85.7 fL (80.0-100.0) 11/04/20 05:18 MCH 29.1 pg (27.0-34.0) 11/04/20 05:18 MCHC 33.9 g/dL (33.0-35.0) 11/04/20 05:18 RDW 14.9 % (11.6-16.5) 11/04/20 05:18 Plt Count 388 X10^3/uL (150.0-450.0) 11/04/20 05:18 MPV 6.6 fL (7.4-11.0) L 11/04/20 05:18 Neut % (Auto) 49.7 % (42.0-75.0) 11/04/20 05:18 Lymph % (Auto) 35.3 % (21.0-51.0) 11/04/20 05:18 Barton % (Auto) 12.9 % (0.0-13.0) 11/04/20 05:18 Eos % (Auto) 1.3 % (0.9-2.9) 11/04/20 05:18 Baso % (Auto) 0.8 % (0.2-1.0) 11/04/20 05:18 Neut # (Auto) 4.2 x10^3/uL (2.2-4.8) 11/04/20 05:18 Lymph # (Auto) 3.0 X10^3/uL (1.3-2.9) H 11/04/20 05:18 Barton # (Auto) 1.1 x10^3/uL (0.3-0.8) H 11/04/20 05:18 Eos # (Auto) 0.1 x10^3/uL (0.0-0.2) 11/04/20 05:18 Baso # (Auto) 0.1 X10^3/uL (0.0-0.1) 11/04/20 05:18 Absolute Nucleated RBC 0.0 /100WBC 11/04/20 05:18 Sodium 131 mmol/L (136-145) L 11/04/20 05:18 Corrected Sodium 131 mmol/L (136-145) L 11/04/20 05:18 Potassium 4.1 mmol/L (3.5-5.1) 11/04/20 05:18 Chloride 100 mmol/L (98-107) 11/04/20 05:18 Carbon Dioxide 28.5 mmol/L (21-32) 11/04/20 05:18 BUN 26 mg/dL (7-18) H 11/04/20 05:18 Creatinine 0.85 mg/dL (0.70-1.30) 11/04/20 05:18 Est GFR (MDRD) Af Amer > 60 (>60) 11/04/20 05:18 Est GFR (MDRD) Non-Af > 60 (>60) 11/04/20 05:18 Glucose 113 mg/dL (65-99) H 11/04/20 05:18 POC Glucose (mg/dL) 90 mg/dL (65-99) 11/03/20 11:53 Calcium 8.0 mg/dL (8.5-10.1) L 11/04/20 05:18 Corrected Calcium 10.0 mg/dL (8.5-10.1) 11/04/20 05:18 Total Bilirubin 0.60 mg/dL (0.2-1.0) 11/04/20 05:18 AST 10 Units/L (15-37) L 11/04/20 05:18 ALT 11 Units/L (12-78) L 11/04/20 05:18 Alkaline Phosphatase 106 Units/L (46-116) 11/04/20 05:18 Total Protein 7.0 g/dL (6.4-8.2) 11/04/20 05:18 Albumin 1.5 g/dL (3.4-5.0) L 11/04/20 05:18 Globulin 5.5 g/dL (2.5-4.5) H 11/04/20 05:18 Albumin/Globulin Ratio 0.3 Ratio (1.1-2.1) L 11/04/20 05:18 Stool Description 95 g. brower/liquid 11/02/20 23:15 Stl Occult Blood (IFOB) Positive (NEGATIVE) A 11/02/20 23:15 Stool for White Cells Positive (NEGATIVE) A 11/03/20 17:30 Stl C. diff Tox B Gene Negative (NEGATIVE) 11/03/20 17:30 Stl C. diff [id number] Presumptive negative (NEGATIVE) 11/03/20 17:30 SARS-CoV-2 (PCR) Negative (NEGATIVE) 11/02/20 18:50 Influenza Type A (PCR) Negative (NEGATIVE) 11/02/20 18:50 Influenza Type B (PCR) Negative (NEGATIVE) 11/02/20 18:50 RSV (PCR) Negative (NEGATIVE) 11/02/20 18:50 Blood Type O POSITIVE 11/02/20 18:02 Antibody Screen Negative 11/02/20 18:02 Crossmatch See Detail 11/02/20 18:02 Plan (1) GI bleed: Status: Acute Qualifiers: GI bleed type/associated pathology: melena Qualified Code(s): K92.1 - Melena (2) Anemia: Status: Acute Qualifiers: Anemia type: unspecified type Qualified Code(s): D64.9 - Anemia, unspecified (3) Positive occult stool blood test: Status: Acute (4) Hyponatremia: Status: Acute (5) Status post ileostomy: Status: Acute (6) Pulmonary emboli: Status: Acute Qualifiers: Acute cor pulmonale presence: unspecified Chronicity: acute Pulmonary embolism type: unspecified Qualified Code(s): I26.99 - Other pulmonary embolism without acute cor pulmonale (7) Right leg DVT: Status: Acute Qualifiers: Affected thrombotic vein of extremity: unspecified vein of extremity Chronicity: acute Qualified Code(s): I82.401 - Acute embolism and thrombosis of unspecified deep veins of right lower extremity
[2020-11-04] MEDS: FLAGYL TAB 500 MG PO SCH ×2 (15:15→21:00)
[2020-11-05] MEDS: NS 1000 ML 1,000 ML IV SCH ×3 (03:42→13:22)
[2020-11-05 04:58] LABS: BASOPHILS % (AUTO) 0.4 % (0.2-1.0); EOSINOPHILS # (AUTO) 0.1 x10^3/uL (0.0-0.2); HEMATOCRIT 24.4 % (42.0-54.0); HEMOGLOBIN 8.2 g/dL (13.5-18.0); LYMPHOCYTES # (AUTO) 2.9 X10^3/uL (1.3-2.9); LYMPHOCYTES % (AUTO) 41.4 % (21.0-51.0); MEAN CORPUSCULAR HEMOGLOBIN 29.1 pg (27.0-34.0); MEAN CORPUSCULAR HGB CONC 33.8 g/dL (33.0-35.0); MEAN CORPUSCULAR VOLUME 86.1 fL (80.0-100.0); MEAN PLATELET VOLUME 6.6 fL (7.4-11.0); MONOCYTES # (AUTO) 0.7 x10^3/uL (0.3-0.8); MONOCYTES % (AUTO) 10.4 % (0.0-13.0); NEUTROPHILS # (AUTO) 3.2 x10^3/uL (2.2-4.8); NEUTROPHILS % (AUTO) 45.8 % (42.0-75.0); PLATELET COUNT 325 X10^3/uL (150.0-450.0); RED BLOOD COUNT 2.83 X10^6/uL (4.7-6.0); RED CELL DISTRIBUTION WIDTH 15.1 % (11.6-16.5); WHITE BLOOD COUNT 6.9 X10^3/uL (3.6-10.0)
[2020-11-05 05:13] LABS: ALANINE AMINOTRANSFERASE 11 Units/L (12-78); ALBUMIN 1.4 g/dL (3.4-5.0); ALKALINE PHOSPHATASE 95 Units/L (46-116); ASPARTATE AMINO TRANSFERASE 9 Units/L (15-37); BLOOD UREA NITROGEN 28 mg/dL (7-18); CHLORIDE 100 mmol/L (98-107); COR CA(FOR HYPOALB) 10.1 mg/dL (8.5-10.1); SODIUM 134 mmol/L (136-145); TOTAL PROTEIN 6.5 g/dL (6.4-8.2); eGFR NON BLACK RACES > 60 (>60)
[2020-11-05 05:23] LABS: CARBON DIOXIDE 28.8 mmol/L (21-32)
[2020-11-05] MEDS: WELCHOL PO SCH ×3 (05:41→21:25)
[2020-11-05] MEDS: FLAGYL TAB 500 MG PO SCH ×3 (05:41→21:25)
[2020-11-05] MEDS: PROTONIX INJ 40 MG VIAL IVP SCH ×2 (08:45→21:25)
[2020-11-05] MEDS: SINGULAIR TAB 10 MG PO SCH (08:45)
[2020-11-05] MEDS: VSL#3 PO SCH (08:46)
[2020-11-05] MEDS: LOMOTIL PO SCH ×4 (08:46→21:25)
[2020-11-05] MEDS: PEPCID TAB 40 MG PO SCH ×2 (08:46→21:25)
[2020-11-05] MEDS: HEMOCYTE-PLUS PO SCH (08:47)
[2020-11-05] MEDS: FLUTICASONE FUROATE VILANTEROL INH SCH (08:52)
[2020-11-05] MEDS: PATIENT'S HOME MEDICATION IV SCH ×2 (09:50→14:16)
[2020-11-05] MEDS ORDERED: DRUG FILTER EXTENSION SET ONE (13:12)
--- NOTE | 2020-11-05 16:17 | PCM.PROG ---
Progress Note Progress Note for Day of Date of Exam: 11/05/20 Subjective Subjective: Patient seen at bedside, no events overnight. He states he feels better today. His ostomy output appears to be the same. He denies active bleeding. He has been ambulating in the room. Labs: Hgb 8.2 Plt 325 WBC 6.9 Na: 134 BUN/Cr 28/0.80 Glucose 99 Campy (-) C.diff (-) Fecal WBC + Plan: continue to monitor H/H, check with Dr. Schultz in the AM about rescheduling EGD to early this week if possible. If not, will check with Dr. Tran. Hold Eliquis for now. Continue Flagyl. Continue IV protonix, Pepcid and GI cocktail. Continue gentle hydration and TPN. Continue home medications. Monitor AM labs and imaging. Past Medical Family Social History Past Med/Fam/Surg Hx: No changes since H&P Allergies: Allergies No Known Drug Allergies Allergy (Verified 07/04/20 13:38) Review of Systems ROS: No change since H&P Vital Signs and I&O's Vital Signs: Temperature 98.3 F Pulse Rate [Left] 70 Pulse Rate 104 Respiratory Rate 18 Blood Pressure [Left Arm] 119/69 Blood Pressure [Right Arm] 97/56 Blood Pressure 113/73 O2 Sat by Pulse Oximetry 95 Intake and Output: Intake & Output 11/02/20 11/03/20 11/04/20 11/05/20 23:59 23:59 23:59 23:59 Intake Total 343 / 343 2401 / 2401 1824 / 1824 3829 / 3829 Balance 343 / 343 2401 / 2401 1824 / 1824 3829 / 3829 Physical Exam Oriented: Normal Eyes: Normal Ear: Normal Nose: Normal Throat: Normal Respiratory: Normal Cardiovascular: Normal Auscultation: Bowel Sounds: Normal Tenderness: Normal and Other (ostomy intact, watery green stool noted, no surrounding erythema, non-tender ) Skin: Normal Musculoskeletal: Normal Psychiatric: Normal Mood Description: Calm Affect: Normal Speech Pattern: Clear and Appropriate Laboratory and Diagnostics Result Diagrams: 11/05/20 04:34 11/05/20 04:34 Labs: 11/03/20 17:30 Stool Stool Culture - Preliminary 11/03/20 17:30 Stool - Final Laboratory WBC 6.9 X10^3/uL (3.6-10.0) 11/05/20 04:34 RBC 2.83 X10^6/uL (4.7-6.0) L 11/05/20 04:34 Hgb 8.2 g/dL (13.5-18.0) L 11/05/20 04:34 Hct 24.4 % (42.0-54.0) L 11/05/20 04:34 MCV 86.1 fL (80.0-100.0) 11/05/20 04:34 MCH 29.1 pg (27.0-34.0) 11/05/20 04:34 MCHC 33.8 g/dL (33.0-35.0) 11/05/20 04:34 RDW 15.1 % (11.6-16.5) 11/05/20 04:34 Plt Count 325 X10^3/uL (150.0-450.0) 11/05/20 04:34 MPV 6.6 fL (7.4-11.0) L 11/05/20 04:34 Neut % (Auto) 45.8 % (42.0-75.0) 11/05/20 04:34 Lymph % (Auto) 41.4 % (21.0-51.0) 11/05/20 04:34 Wharton % (Auto) 10.4 % (0.0-13.0) 11/05/20 04:34 Eos % (Auto) 2.0 % (0.9-2.9) 11/05/20 04:34 Baso % (Auto) 0.4 % (0.2-1.0) 11/05/20 04:34 Neut # (Auto) 3.2 x10^3/uL (2.2-4.8) 11/05/20 04:34 Lymph # (Auto) 2.9 X10^3/uL (1.3-2.9) 11/05/20 04:34 Wharton # (Auto) 0.7 x10^3/uL (0.3-0.8) 11/05/20 04:34 Eos # (Auto) 0.1 x10^3/uL (0.0-0.2) 11/05/20 04:34 Baso # (Auto) 0.0 X10^3/uL (0.0-0.1) 11/05/20 04:34 Absolute Nucleated RBC 0.0 /100WBC 11/05/20 04:34 Sodium 134 mmol/L (136-145) L 11/05/20 04:34 Corrected Sodium TNP 11/05/20 04:34 Potassium 4.3 mmol/L (3.5-5.1) 11/05/20 04:34 Chloride 100 mmol/L (98-107) 11/05/20 04:34 Carbon Dioxide 28.8 mmol/L (21-32) 11/05/20 04:34 BUN 28 mg/dL (7-18) H 11/05/20 04:34 Creatinine 0.80 mg/dL (0.70-1.30) 11/05/20 04:34 Est GFR (MDRD) Af Amer > 60 (>60) 11/05/20 04:34 Est GFR (MDRD) Non-Af > 60 (>60) 11/05/20 04:34 Glucose 99 mg/dL (65-99) 11/05/20 04:34 POC Glucose (mg/dL) 90 mg/dL (65-99) 11/03/20 11:53 Calcium 8.0 mg/dL (8.5-10.1) L 11/05/20 04:34 Corrected Calcium 10.1 mg/dL (8.5-10.1) 11/05/20 04:34 Total Bilirubin 0.40 mg/dL (0.2-1.0) 11/05/20 04:34 AST 9 Units/L (15-37) L 11/05/20 04:34 ALT 11 Units/L (12-78) L 11/05/20 04:34 Alkaline Phosphatase 95 Units/L (46-116) 11/05/20 04:34 Total Protein 6.5 g/dL (6.4-8.2) 11/05/20 04:34 Albumin 1.4 g/dL (3.4-5.0) L 11/05/20 04:34 Globulin 5.1 g/dL (2.5-4.5) H 11/05/20 04:34 Albumin/Globulin Ratio 0.3 Ratio (1.1-2.1) L 11/05/20 04:34 Stool Description 95 g. brower/liquid 11/02/20 23:15 Stl Occult Blood (IFOB) Positive (NEGATIVE) A 11/02/20 23:15 Stool for White Cells Positive (NEGATIVE) A 11/03/20 17:30 Stl C. diff Tox B Gene Negative (NEGATIVE) 11/03/20 17:30 Stl C. diff [id number] Presumptive negative (NEGATIVE) 11/03/20 17:30 SARS-CoV-2 (PCR) Negative (NEGATIVE) 11/02/20 18:50 Influenza Type A (PCR) Negative (NEGATIVE) 11/02/20 18:50 Influenza Type B (PCR) Negative (NEGATIVE) 11/02/20 18:50 RSV (PCR) Negative (NEGATIVE) 11/02/20 18:50 Blood Type O POSITIVE 11/02/20 18:02 Antibody Screen Negative 11/02/20 18:02 Crossmatch See Detail 11/02/20 18:02 Plan (1) GI bleed: Status: Acute Qualifiers: GI bleed type/associated pathology: melena Qualified Code(s): K92.1 - Melena (2) Anemia: Status: Acute Qualifiers: Anemia type: unspecified type Qualified Code(s): D64.9 - Anemia, unspecified (3) Positive occult stool blood test: Status: Acute (4) Hyponatremia: Status: Acute (5) Status post ileostomy: Status: Acute (6) Pulmonary emboli: Status: Acute Qualifiers: Acute cor pulmonale presence: unspecified Chronicity: acute Pulmonary embolism type: unspecified Qualified Code(s): I26.99 - Other pulmonary embolism without acute cor pulmonale (7) Right leg DVT: Status: Acute Qualifiers: Affected thrombotic vein of extremity: unspecified vein of extremity Chronicity: acute Qualified Code(s): I82.401 - Acute embolism and thrombosis of unspecified deep veins of right lower extremity
[2020-11-05 16:55] LABS: HEMATOCRIT 23.9 % (42.0-54.0)
[2020-11-06 05:09] LABS: BASOPHILS % (AUTO) 0.6 % (0.2-1.0); EOSINOPHILS # (AUTO) 0.2 x10^3/uL (0.0-0.2); EOSINOPHILS % (AUTO) 3.7 % (0.9-2.9); HEMATOCRIT 23.3 % (42.0-54.0); HEMOGLOBIN 7.8 g/dL (13.5-18.0); LYMPHOCYTES # (AUTO) 2.3 X10^3/uL (1.3-2.9); LYMPHOCYTES % (AUTO) 41.2 % (21.0-51.0); MEAN CORPUSCULAR HEMOGLOBIN 29.1 pg (27.0-34.0); MEAN CORPUSCULAR HGB CONC 33.5 g/dL (33.0-35.0); MEAN CORPUSCULAR VOLUME 86.8 fL (80.0-100.0); MEAN PLATELET VOLUME 6.9 fL (7.4-11.0); MONOCYTES # (AUTO) 0.6 x10^3/uL (0.3-0.8); MONOCYTES % (AUTO) 11.4 % (0.0-13.0); NEUTROPHILS # (AUTO) 2.4 x10^3/uL (2.2-4.8); NEUTROPHILS % (AUTO) 43.1 % (42.0-75.0); PLATELET COUNT 294 X10^3/uL (150.0-450.0); RED BLOOD COUNT 2.69 X10^6/uL (4.7-6.0); RED CELL DISTRIBUTION WIDTH 14.9 % (11.6-16.5); WHITE BLOOD COUNT 5.5 X10^3/uL (3.6-10.0)
[2020-11-06 05:14] LABS: ALANINE AMINOTRANSFERASE 11 Units/L (12-78); ALBUMIN 1.3 g/dL (3.4-5.0); ALKALINE PHOSPHATASE 84 Units/L (46-116); ASPARTATE AMINO TRANSFERASE 12 Units/L (15-37); BLOOD UREA NITROGEN 25 mg/dL (7-18); CALCIUM 7.9 mg/dL (8.5-10.1); CARBON DIOXIDE 28.7 mmol/L (21-32); CHLORIDE 104 mmol/L (98-107); COR CA(FOR HYPOALB) 10.1 mg/dL (8.5-10.1); CREATININE 0.71 mg/dL (0.70-1.30); SODIUM 137 mmol/L (136-145); TOTAL PROTEIN 6.1 g/dL (6.4-8.2); eGFR NON BLACK RACES > 60 (>60)
[2020-11-06] MEDS: NS 1000 ML 1,000 ML IV SCH ×2 (06:05→06:09)
[2020-11-06] MEDS: WELCHOL PO SCH ×2 (06:10→14:39)
[2020-11-06] MEDS: FLAGYL TAB 500 MG PO SCH ×2 (06:10→14:39)
[2020-11-06] MEDS ORDERED: DIPRIVAN VIAL 20 ML ONE (07:30)
[2020-11-06] MEDS: FLUTICASONE FUROATE VILANTEROL INH SCH (08:22)
--- NOTE | 2020-11-06 08:33 | OR.IMMED ---
Immediate Post-Op Note - Immediate Post-Op Note Pre-Op Diagnosis: GI bleeding , anemia . s/p colectomy . Post-Op Diagnosis: no bleeding in the upper GI tract . multiple benign polyps in the fundus . no ulcers, varices , neoplasm or inflammation . Procedure: EGD with Bs Surgeon/[employer] Manager: Isa. Specimens Removed: Bs from the antrum, fundus . Drains: NONE Complications: none Condition: Stable (obtain CEA . advance diet .)
[2020-11-06] MEDS ORDERED: PULMICORT NEB TX 0.5 MG NEB SCH (09:00)
[2020-11-06] MEDS: LOMOTIL PO SCH ×2 (09:14→13:10)
[2020-11-06] MEDS: PEPCID TAB 40 MG PO SCH (09:14)
[2020-11-06] MEDS: PROTONIX INJ 40 MG VIAL IVP SCH (09:14)
[2020-11-06] MEDS: HEMOCYTE-PLUS PO SCH (09:14)
[2020-11-06] MEDS: SINGULAIR TAB 10 MG PO SCH (09:15)
[2020-11-06] MEDS: VSL#3 PO SCH (09:15)
[2020-11-06] MEDS ORDERED: NS 500 ML IV 500 ML IV ONE (10:23)
[2020-11-06] MEDS: PROVENTIL NEB TX 0.083% 2.5MG/ 3ML NEB SCH ×3 (10:39→18:19)
[2020-11-06] MEDS ORDERED: PATIENT'S HOME MEDICATION SC ONE (11:00)
[2020-11-06] MEDS: LEVSIN/MAALOX/LIDOC VISC PO PRN (14:42)
--- NOTE | 2020-11-06 16:38 | W.DIS.FURT ---
Summary of Discharge Admission Diagnosis Patient Problems (Updated 11/03/20 @ 17:13 by Marisela Gorman) Anemia (Acute) D64.9 Vital Signs: Vital Signs (72 hours) 11/03/20 16:53 11/03/20 20:00 11/04/20 00:00 Temperature 99.7 F H 97.6 F Pulse Rate Pulse Rate [Brachial] Pulse Rate [Left] 91 H 89 Respiratory Rate 18 20 18 Blood Pressure [Left Arm] Blood Pressure [Right Arm] 115/60 117/73 O2 Sat by Pulse Oximetry 95 98 11/04/20 00:18 11/04/20 01:18 11/04/20 04:00 Temperature 98.9 F Pulse Rate Pulse Rate [Brachial] Pulse Rate [Left] 90 Respiratory Rate 20 18 19 Blood Pressure [Left Arm] Blood Pressure [Right Arm] 124/74 O2 Sat by Pulse Oximetry 95 11/04/20 08:00 11/04/20 12:00 11/04/20 16:00 Temperature 98.0 F 97.6 F 98.0 F Pulse Rate Pulse Rate [Brachial] Pulse Rate [Left] 80 82 64 Respiratory Rate 18 18 18 Blood Pressure [Left Arm] Blood Pressure [Right Arm] 106/68 115/74 166/96 O2 Sat by Pulse Oximetry 94 L 98 95 11/04/20 20:00 11/05/20 00:00 11/05/20 04:00 Temperature 99.0 F 100 F H 98.9 F Pulse Rate Pulse Rate [Brachial] Pulse Rate [Left] 95 H 102 H 90 Respiratory Rate 20 20 19 Blood Pressure [Left Arm] Blood Pressure [Right Arm] 118/71 131/78 140/86 O2 Sat by Pulse Oximetry 98 96 96 11/05/20 08:00 11/05/20 11:38 11/05/20 16:00 Temperature 98.0 F 98.3 F 97.7 F Pulse Rate Pulse Rate [Brachial] Pulse Rate [Left] 78 70 81 Respiratory Rate 20 18 18 Blood Pressure [Left Arm] Blood Pressure [Right Arm] 104/65 97/56 95/56 O2 Sat by Pulse Oximetry 97 95 94 L 11/05/20 20:00 11/06/20 00:00 11/06/20 04:00 Temperature 97.6 F 98.7 F 97.9 F Pulse Rate Pulse Rate [Brachial] 68 Pulse Rate [Left] 99 H 87 Respiratory Rate 18 18 18 Blood Pressure [Left Arm] Blood Pressure [Right Arm] 108/64 103/66 94/56 O2 Sat by Pulse Oximetry 96 97 98 11/06/20 10:39 11/06/20 12:00 11/06/20 14:42 Temperature 98.4 F Pulse Rate 82 Pulse Rate [Brachial] 80 Pulse Rate [Left] Respiratory Rate 20 20 Blood Pressure [Left Arm] 102/67 Blood Pressure [Right Arm] O2 Sat by Pulse Oximetry 98 97 11/06/20 15:42 Temperature Pulse Rate Pulse Rate [Brachial] Pulse Rate [Left] Respiratory Rate 20 Blood Pressure [Left Arm] Blood Pressure [Right Arm] O2 Sat by Pulse Oximetry Labs: Laboratory Last Values WBC 5.5 X10^3/uL (3.6-10.0) 11/06/20 04:35 RBC 2.69 X10^6/uL (4.7-6.0) L 11/06/20 04:35 Hgb 7.8 g/dL (13.5-18.0) L 11/06/20 04:35 Hct 23.3 % (42.0-54.0) L 11/06/20 04:35 MCV 86.8 fL (80.0-100.0) 11/06/20 04:35 MCH 29.1 pg (27.0-34.0) 11/06/20 04:35 MCHC 33.5 g/dL (33.0-35.0) 11/06/20 04:35 RDW 14.9 % (11.6-16.5) 11/06/20 04:35 Plt Count 294 X10^3/uL (150.0-450.0) 11/06/20 04:35 MPV 6.9 fL (7.4-11.0) L 11/06/20 04:35 Neut % (Auto) 43.1 % (42.0-75.0) 11/06/20 04:35 Lymph % (Auto) 41.2 % (21.0-51.0) 11/06/20 04:35 Jackson % (Auto) 11.4 % (0.0-13.0) 11/06/20 04:35 Eos % (Auto) 3.7 % (0.9-2.9) H 11/06/20 04:35 Baso % (Auto) 0.6 % (0.2-1.0) 11/06/20 04:35 Neut # (Auto) 2.4 x10^3/uL (2.2-4.8) 11/06/20 04:35 Lymph # (Auto) 2.3 X10^3/uL (1.3-2.9) 11/06/20 04:35 Jackson # (Auto) 0.6 x10^3/uL (0.3-0.8) 11/06/20 04:35 Eos # (Auto) 0.2 x10^3/uL (0.0-0.2) 11/06/20 04:35 Baso # (Auto) 0.0 X10^3/uL (0.0-0.1) 11/06/20 04:35 Absolute Nucleated RBC 0.0 /100WBC 11/06/20 04:35 Sodium 137 mmol/L (136-145) 11/06/20 04:35 Corrected Sodium TNP 11/06/20 04:35 Potassium 4.5 mmol/L (3.5-5.1) 11/06/20 04:35 Chloride 104 mmol/L (98-107) 11/06/20 04:35 Carbon Dioxide 28.7 mmol/L (21-32) 11/06/20 04:35 BUN 25 mg/dL (7-18) H 11/06/20 04:35 Creatinine 0.71 mg/dL (0.70-1.30) 11/06/20 04:35 Est GFR (MDRD) Af Amer > 60 (>60) 11/06/20 04:35 Est GFR (MDRD) Non-Af > 60 (>60) 11/06/20 04:35 Glucose 97 mg/dL (65-99) 11/06/20 04:35 POC Glucose (mg/dL) 90 mg/dL (65-99) 11/03/20 11:53 Calcium 7.9 mg/dL (8.5-10.1) L 11/06/20 04:35 Corrected Calcium 10.1 mg/dL (8.5-10.1) 11/06/20 04:35 Iron 15 ug/dL (50-175) L 11/06/20 04:35 Transferrin 130 mg/dL (202-364) L 11/06/20 04:35 Ferritin 78 ng/mL (26-388) 11/06/20 04:35 Total Bilirubin 0.30 mg/dL (0.2-1.0) 11/06/20 04:35 AST 12 Units/L (15-37) L 11/06/20 04:35 ALT 11 Units/L (12-78) L 11/06/20 04:35 Alkaline Phosphatase 84 Units/L (46-116) 11/06/20 04:35 Total Protein 6.1 g/dL (6.4-8.2) L 11/06/20 04:35 Albumin 1.3 g/dL (3.4-5.0) L 11/06/20 04:35 Globulin 4.8 g/dL (2.5-4.5) H 11/06/20 04:35 Albumin/Globulin Ratio 0.3 Ratio (1.1-2.1) L 11/06/20 04:35 Vitamin B12 753 pg/mL (193-986) 11/06/20 04:35 Folate 15.0 ng/mL (>8.6) 11/06/20 04:35 Stool Description 95 g. brower/liquid 11/02/20 23:15 Stl Occult Blood (IFOB) Positive (NEGATIVE) A 11/02/20 23:15 Stool for White Cells Positive (NEGATIVE) A 11/03/20 17:30 Stl C. diff Tox B Gene Negative (NEGATIVE) 11/03/20 17:30 Stl C. diff [id number] Presumptive negative (NEGATIVE) 11/03/20 17:30 SARS-CoV-2 (PCR) Negative (NEGATIVE) 11/02/20 18:50 Influenza Type A (PCR) Negative (NEGATIVE) 11/02/20 18:50 Influenza Type B (PCR) Negative (NEGATIVE) 11/02/20 18:50 RSV (PCR) Negative (NEGATIVE) 11/02/20 18:50 Tissue Pathology To follow 11/06/20 07:54 Blood Type O POSITIVE 11/06/20 10:42 Antibody Screen Negative 11/06/20 10:42 Crossmatch See Detail 11/06/20 10:42 Reason For Visit: ANEMIA Discharge Diagnosis All Active Problems (Updated 11/03/20 @ 17:13 by Marisela Gorman) GI bleed (Acute) Hyponatremia (Acute) Positive occult stool blood test (Acute) Anemia (Acute) Pulmonary emboli (Acute) Right leg DVT (Acute) Fever (Acute) Rectal bleeding (Acute) Abdominal pain (Acute) Nausea & vomiting (Acute) Status post ileostomy (Acute) Small bowel obstruction (Acute) Pneumonia (Acute) Plan of Treatment: Continue with present treatment and follow up plan. Pt is to keep follow up appointment as instructed and take medications as ordered. Discharge Medications Discharge Medications: No Known Drug Allergies Allergy (Verified 07/04/20 13:38) CONTINUE taking the following medications Cholestyramine Light 1 ea PO QID 11/02/20 [History] Eliquis 5 mg PO BID 11/02/20 [History] colesevelam [WelChol] 3.75 g PO DAILY 11/02/20 [History] diphenoxylate-atropine 4 tab PO QID PRN 11/02/20 [History] montelukast 10 mg PO DAILY 11/02/20 [History] pantoprazole 40 mg PO BID 11/02/20 [History] polysaccharide iron complex [Poly-Iron] 150 mg PO BID 11/02/20 [History] temazepam 30 mg PO HS 11/02/20 [History] New Prescriptions metronidazole 500 mg PO TID 5 Days #15 tab 11/06/20 [Rx] Discharge Plan Discharge Plan Patient Disposition: [address] [place] [address] Condition: Stable Health Concerns: Post Hospitalization: new medications and changes needed to prevent readmission or further decline. Pt educated and given instructions on all concerns. Care Plan Goals: Problem: Altered nutrition Goal: Nutrition deficit will be minimized or prevented. Instructions: Follow provided instructions. Follow up with primary physician as directed. Contact primary care physician or report to the closest Emergency Room if condition worsens. Plan of Treatment: Continue with present treatment and follow up plan. Pt is to keep follow up appointment as instructed and take medications as ordered. Prescription drug monitoring program results: PDMP reviewed and no concerns identified Prescriptions: New metronidazole 500 mg Tablet 500 mg PO TID 5 Days Qty: 15 RF: 0 Continued ondansetron HCl 4 mg tablet 4 mg PO BID PRNRF: 0 ergocalciferol (vitamin D2) [Vitamin D2] 1,250 mcg (50,000 unit) capsule 1,250 mcg PO WEEKLY RF: 0 polysaccharide iron complex [Poly-Iron] 150 mg iron capsule 150 mg PO BID RF: 0 diphenoxylate-atropine 2.5-0.025 mg tablet 4 tab PO QID PRNRF: 0 temazepam 30 mg capsule 30 mg PO HS RF: 0 pantoprazole 40 mg tablet,delayed release (DR/EC) 40 mg PO BID RF: 0 montelukast 10 mg tablet 10 mg PO DAILY RF: 0 Cholestyramine Light 4 gram powder 1 ea PO QID RF: 0 colesevelam [WelChol] 3.75 gram powder in packet 3.75 g PO DAILY RF: 0 Eliquis 5 mg tablet 5 mg PO BID RF: 0 Discontinued furosemide 40 mg tablet 40 mg PO BID RF: 0 potassium chloride 20 mEq tablet,ER particles/crystals 20 meq PO QID RF: 0 Follow ups/Referrals Follow ups/Referrals: SANDER MCCLAIN [Primary Care Provider] - 11/08/20 3:30 pm ABRAN CONWAY [STAFF PHYSICIAN] - 12/11/20 12:40 pm Instructions Instructions: Furosemide tablets, Anemia, Hypotension, [id number], Gastrointestinal Bleeding, [id number] Activity Restrictions/Additional Instructions: Follow up with primary care in 3 days to recheck hemoglobin. Also discuss restarting lasix and potassium if needed. Due to low blood pressure, hold lasix until seen by primary care. Check blood pressure daily. Stand Alone Forms: Excuse From Work or School, Precautions for COVID19, Patient Portal, Social Distancing
[2020-11-06 17:35] VITALS: BP 110/74
[2020-11-08] MEDS ORDERED: VITAMIN B-12 INJ IM SCH (09:00)
== END 2020-11-06 17:55 | disposition home health service (06) ==
LOC: ER 15:46 → MED/SURG 15:46
PROVIDERS: ADMIT Internal Medicine; ATTEND Internal Medicine
DX: I82.401 Acute embolism and thrombosis of unspecified deep veins of right lower extremity; I25.10 Atherosclerotic heart disease of native coronary artery without angina pectoris; K92.1 Melena; Z93.3 Colostomy status; E87.1 Hypo-osmolality and hyponatremia; K31.7 Polyp of stomach and duodenum; Z20.822 Contact with and (suspected) exposure to COVID-19; I26.99 Other pulmonary embolism without acute cor pulmonale; D64.89 Other specified anemias